=== PATIENT | female | born 1950 | race Caucasian/White ===

== ENCOUNTER 2021-12-11 09:38 | Inpatient (IN) | payer MEDICARE, OTHER, SELFPAY ==
[2021-12-11] VITALS (15 sets, daily range): BP systolic 112–172; BP diastolic 68–83; PULSE 76–126; RESP 18–26; TEMP 36.6–36.9; O2SAT 91–98; BMI 30.2
--- NOTE | 2021-12-11 10:17 | XR_ITS ---
WS: [id number] Exam: XR chest 1V portable [id number] Date/Time of Exam: 12/11/2021 10:20 AM Reason For Exam: dyspnea Comparison 12/10/2021. Findings: The lungs are clear and fully expanded. Costophrenic angles are sharp. No infiltrates. Bronchovascula r relief appears normal. Cardiac silhouette is unremarkable. Bony elements are intact. XR/XR chest 1V portable [id number] IMPRESSION: Unremarkable chest radiograph.
--- NOTE | 2021-12-11 10:17 | ECG_ITS ---
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 Measurements Intervals [place] Rate: 108 P: 79 MT: 136 QRS: 78 QRSD: 98 T: 56 QT: 301 QTc: 405 Interpretive Statements SINUS TACHYCARDIA MODERATE ST DEPRESSION [0.05+ mV ST DEPRESSION] Compared to ECG 12/10/2021 15:58:08 ST (T wave) deviation now present Sinus rhythm no longer present Electronically Signed On 12-11-2021 18:54:06 CDT by Sharee Schmitt M.D. [id number]
--- NOTE | 2021-12-11 10:18 | ED_ITS ---
HPI - SOB/Dyspnea General: Chief Complaint: Shortness of Breath/Dyspnea Stated Complaint: SOB/ WHEEZING Time Seen by Provider: 12/11/21 09:55 History of Present Illness: HPI Narrative: This is a 71-year-old female with chronic hypoxic respiratory failure related to COPD who presents to the emergency department after failure of outpatient treatment. The patient was seen yesterday for exacerbation of COPD and preferred to try and go home. However despite getting multiple breathing treatments and steroids yesterday she woke up this morning and was hardly able to get to the bathroom. Just combing her hair exhausted her and she could not catch her breath. Her daughter had to come over and turn her oxygen up to 5 L. The patient had already tried using her albuterol metered-dose inhaler several times and then did a albuterol nebulizer. When EMS came she was still wheezing and another nebulizer was done in route as well as 125 mg of Solu-Medrol. The patient states that nothing has changed from yesterday however she has not improving as she thought she would. Her daughter encouraged her to reach out for admission given the severity of her exacerbation. Review of Systems Narrative: Pertinent Positives: Dyspnea, wheezing, generalized weakness Pertinent Negatives: No fever, hemoptysis, syncope, chest pain, vomiting 12 Point ROS performed and otherwise negative unless stated here or HPI. [facility] ED PFSH: Medical History COPD exacerbation Surgical History (Updated 12/11/21 @ 11:06 by Heriberto Curran MD) History of elbow surgery History of hand surgery History of hysterectomy Family History (Updated 12/11/21 @ 11:06 by Heriberto Curran MD) Other Cancer Social History Smoking and tobacco status: former smoker Alcohol intake: never Physical Exam Narrative: EXAM NARRATIVE: I have reviewed the triage vital signs. Const: Well-nourished, Well-developed, appearing stated age, moderate respiratory distress Eyes: EOMI, no conjunctival injection, and symmetrical lids. ENMT: Atraumatic head and facial exam, external nose and ears normal Neck: Symmetric, trachea midline, no swelling, no JVD, ROM wnl CVS: Tachycardic rate, radial pulse 2+, no peripheral edema RESP: Diminished, inspiratory and expiratory wheezes, labored respirations, conversational dyspnea GI: Nontender/Nondistended, soft, no masses. MSK: Normocephalic/Atraumatic, extremities w/o deformity, no cyanosis or clubbing, no edema Skin: Warm, Dry, No rashes or lesions noted. Neuro: Sensation grossly intact, VELEZ, no focal neurologic deficits Psych: awake, alert, oriented, appropriate mood and affect Course Vital Signs: Vital signs: Vital Signs Temperature 98.2 F 12/11/21 09:51 Pulse Rate 126 H 12/11/21 10:49 Respiratory Rate 22 H 12/11/21 10:30 Blood Pressure 112/74 12/11/21 09:57 Pulse Oximetry 96 12/11/21 10:30 MDM - SOB/Dyspnea Medical Decision Making Patient presents with what appears to be a COPD exacerbation. She has had 2 doses of Solu-Medrol at 125 mg each, multiple treatments of albuterol and ipratropium. She continues to have severe symptoms. She is maintaining her oxygen at 97% now on 3 L. When she first came she was on 6 L/min. Her heart rate was elevated in the 120s on arrival but she had just finished doing albuterol at home and in the ambulance. It appears to be a sinus rhythm but an EKG will be ordered. I reviewed her labs from yesterday and she is found to have positive entero/rhinovirus which explains her exacerbation. Her COVID and influenza were negative. The patient's chest x-ray did not show any infiltrates. Her BNP and troponin were unremarkable. Plan to admit the patient today but will repeat a chest x-ray and obtain an ABG. ABG showed mild acute respiratory acidosis. Discussed with Dr Curran for admission. Lab Data : 12/11/21 09:45 12/11/21 09:45 Labs/Radiology: Radiology Impressions Chest X-Ray 12/11/21 10:17 IMPRESSION: Unremarkable chest radiograph. Laboratory Results WBC 13.5 10^3/uL (4.0-10.0) H 12/11/21 09:45 RBC 4.38 10^6/uL (4.1-5.3) 12/11/21 09:45 Hgb 12.8 g/dL (11.5-15.3) 12/11/21 09:45 Hct 39.0 % (37.0-47.0) 12/11/21 09:45 MCV 89.0 fl (81-99) 12/11/21 09:45 MCH 29.2 pg (28.0-34.0) 12/11/21 09:45 MCHC 32.8 g/dL (30.0-36.0) 12/11/21 09:45 RDW 11.8 % (12.1-15.1) L 12/11/21 09:45 Plt Count 333 10^3/cmm (130-400) 12/11/21 09:45 MPV 11.0 fL (7.4-10.4) H 12/11/21 09:45 Neut % (Auto) 85.2 % 12/11/21 09:45 Lymph % (Auto) 9.5 % 12/11/21 09:45 [place] % (Auto) 4.7 % 12/11/21 09:45 Eos % (Auto) 0.0 % 12/11/21 09:45 Baso % (Auto) 0.1 % 12/11/21 09:45 Neut # (Auto) 11.55 10^3/uL (1.8-7.7) H 12/11/21 09:45 Lymph # (Auto) 1.3 10^3/uL (0.8-4.8) 12/11/21 09:45 [place] # (Auto) 0.6 10^3/uL (0.2-0.9) 12/11/21 09:45 Eos # (Auto) 0.0 10^3/uL (0.0-0.8) 12/11/21 09:45 Baso # (Auto) 0.0 10^3/uL (0.0-0.1) 12/11/21 09:45 Nucleated RBC % (auto) 0 % 12/11/21 09:45 Nucleated RBCs # 0.0 /100WBC 12/11/21 09:45 Specimen Type Arterial 12/11/21 10:28 Sample Site Brachial, left 12/11/21 10:28 ABG pH 7.34 (7.35-7.45) L 12/11/21 10:28 ABG pCO2 51.9 mmHg (35-45) H 12/11/21 10:28 ABG pO2 90.2 mmHg (80.0-100.0) 12/11/21 10:28 ABG HCO3 27.7 mmol/L (22-26) H 12/11/21 10:28 ABG Base Excess 1.0 mmol/L (-2.0-2.0) 12/11/21 10:28 Gonzalez Test N/a 12/11/21 10:28 Hematocrit 39.4 % (37-47) 12/11/21 10:28 Hgb O2 Saturation 95.6 % (95-100) 12/11/21 10:28 Carboxyhemoglobin 0.3 %THgb (0.4-20.1) L 12/11/21 10:28 Methemoglobin 1.2 % (0.4-1.5) 12/11/21 10:28 Total Hemoglobin 12.8 g/dL (12-16) 12/11/21 10:28 O2 Delivery Device Nc 12/11/21 10:28 O2 Liters/Min 3.5 % 12/11/21 10:28 Answering Service Telephone Operator ID [id number] 12/11/21 10:28 Sodium 139 mmol/L (136-145) 12/11/21 09:45 Potassium 3.9 mmol/L (3.5-5.1) 12/11/21 09:45 Chloride 99 mmol/L (98-107) 12/11/21 09:45 Carbon Dioxide 27 mmol/L (22-29) 12/11/21 09:45 Anion Gap 16.9 (5-19) 12/11/21 09:45 BUN 13 mg/dL (8-23) 12/11/21 09:45 Creatinine 0.5 mg/dL (0.5-0.9) 12/11/21 09:45 GFR Calculation Not Reportable 12/11/21 09:45 Glucose 248 mg/dL (65-115) H 12/11/21 09:45 Calculated Osmolality 296 mOsm/kg (285-295) H 12/11/21 09:45 Calcium 9.5 mg/dL (8.5-10.5) 12/11/21 09:45 Total Bilirubin 0.2 mg/dL (0.15-1.2) 12/11/21 09:45 AST 18 U/L (0-32) 12/11/21 09:45 ALT 22 U/L (0-33) 12/11/21 09:45 Alkaline Phosphatase 87 IU/L (35-105) 12/11/21 09:45 Total Protein 7.6 g/dL (6.6-8.7) 12/11/21 09:45 Albumin 4.4 g/dL (3.5-5.2) 12/11/21 09:45 Globulin 3.2 g/dL (1.3-4.6) 12/11/21 09:45 Discharge Plan Discharge Patient Disposition: Admitted As Inpatient Clinical Impression: Acute exacerbation of chronic obstructive pulmonary disease, Rhinovirus Condition: Stable Coding Level of Care Code ED Paper Mill Manager for Danny Casillas
[2021-12-11] MEDS: magnesium sulfate premix 2 GM/50 ML PIGGYBACK IV (10:28)
[2021-12-11] MEDS: ipratropium-albuterol 3 mL Neb INHALATION ×4 (10:33→23:03)
[2021-12-11 10:45] LABS: ABG PCO2 51.9 mmHg (35-45); ABG PH Result 7.34 (7.35-7.45); Arterial Blood Gas Hematocrit 39.4 % (37-47); Blood Gas LPM 3.5 %; Blood Gas Operator Identificat GD; Blood Gas Sample Site Brachial, left; Blood Gas Sample Type Arterial; Carboxyhemoglobin 0.3 %THgb (0.4-20.1); HCO3 ABG 27.7 mmol/L (22-26); HGB O2 Sat 95.6 % (95-100); Methemoglobin 1.2 % (0.4-1.5); Oxygen Device NC; PO2 ABG 90.2 mmHg (80.0-100.0); Total Hemoglobin 12.8 g/dL (12-16)
[2021-12-11 10:46] LABS: Basophils % 0.1 %; Hemoglobin 12.8 g/dL (11.5-15.3); Lymphocytes # 1.3 10^3/uL (0.8-4.8); Lymphocytes % 9.5 %; Mean Corpuscular HGB Conc 32.8 g/dL (30.0-36.0); Mean Corpuscular Hemoglobin 29.2 pg (28.0-34.0); Monocytes # 0.6 10^3/uL (0.2-0.9); Monocytes % 4.7 %; Neutrophils # 11.55 10^3/uL (1.8-7.7); Neutrophils % 85.2 %; Nucleated Red Blood Cells % 0 %; Platelet Count 333 10^3/cmm (130-400); Red Blood Count 4.38 10^6/uL (4.1-5.3); Red Cell Distribution Width 11.8 % (12.1-15.1); White Blood Count 13.5 10^3/uL (4.0-10.0)
[2021-12-11 10:56] LABS: Alanine Aminotransferase 22 U/L (0-33); Albumin Level 4.4 g/dL (3.5-5.2); Alkaline Phosphatase 87 IU/L (35-105); Anion Gap 16.9 (5-19); Aspartate Amino Transferase 18 U/L (0-32); Blood Urea Nitrogen 13 mg/dL (8-23); Calcium 9.5 mg/dL (8.5-10.5); Carbon Dioxide 27 mmol/L (22-29); Chloride 99 mmol/L (98-107); Globulin 3.2 g/dL (1.3-4.6); Glucose 248 mg/dL (65-115); Osmolality Calculated 296 mOsm/kg (285-295); Potassium 3.9 mmol/L (3.5-5.1); Sodium 139 mmol/L (136-145); Total Bilirubin 0.2 mg/dL (0.15-1.2); Total Protein 7.6 g/dL (6.6-8.7)
--- NOTE | 2021-12-11 11:02 | PM.HP ---
Providers/Chief Complaint Admitting Physician: Heriberto Curran MD Primary Care Provider: Donald Joiner Chief Complaint: SOB/ WHEEZING History of Present Illness Shirley Avila is a 71 year old female who presents with increased wheezing for the last 3 days. She typically has some wheezing with exertion, and is maintained on 3-1/2 L of oxygen. This morning her oxygen saturation was lower, and daughter increased it to 5 L. She has had some chills but no fever. She occasionally has productivity to her cough but no blood. She reports a little bit of chest tightness when she was wheezing significantly. She was seen in the ER yesterday, prescribed some prednisone but she has not yet had it filled. She continues to smoke but has not in the last 1-1/2 days. Denies any vomiting. Reports she does not want a nicotine patch currently. She did not have her blood pressure medicine yet this morning. In the emergency department she received breathing treatment, and some magnesium. Review of Systems General: Reports: 10 or more systems reviewed and unremarkable except in HPI and below Const: Reports: chills; Denies: fever(s) Eyes: Denies: change in vision ENMT: Denies: throat pain Card: Reports: chest pain Resp: Reports: dyspnea, productive cough and wheezing GI: Denies: abdominal pain, nausea, vomiting, hematochezia or melena : Denies: flank pain Musc: Denies: neck pain Skin/Breast: Denies: rash Neuro: Denies: headache(s) Psych: Denies: anxiety Endo: Denies: polyuria Maciej/Lymph: Denies: easy bruising All/Imm: Denies: urticaria Medications/Allergies Home Medications Medication Instructions Recorded Confirmed Last Taken Type albuterol sulfate 2.5 mg INHALATION Q4H PRN 12/10/21 12/11/21 12/10/21 History albuterol sulfate 90 mcg/actuation 2 puff INHALATION Q4H PRN 12/10/21 12/11/21 12/10/21 History aerosol inhaler (ProAir HFA) amlodipine 5 mg tablet 5 mg PO QAM 12/10/21 12/11/21 12/10/21 History aspirin 81 mg tablet,delayed 81 mg PO QAM 12/10/21 12/11/21 12/10/21 History release cetirizine 10 mg tablet 10 mg PO DAILY PRN 12/10/21 12/11/21 12/09/21 History ipratropium 20 mcg-albuterol 100 1 puff INHALATION Q6H 12/10/21 12/11/21 12/10/21 History mcg/actuation mist for inhalation (Combivent Respimat) metoprolol succinate 100 mg 100 mg PO DAILY 12/10/21 12/11/21 12/10/21 History tablet,extended release 24 hr prednisone 50 mg tablet 50 mg PO DAILY PRN 5 Days #5 tab 12/10/21 12/11/21 Unknown Rx Fish Oil 1 cap PO DAILY 12/11/21 12/11/21 Unknown History dextromethorphan-guaifenesin 10 10 ml PO Q4H PRN 12/11/21 12/11/21 12/09/21 History mg-100 mg/5 mL oral liquid [id number]-[id number]-HD-acetaminophen 7.5 30 ml PO Q6H PRN 12/11/21 12/11/21 Unknown History mg-60 [id number]/30mL oral liqd metformin 500 mg tablet 500 mg PO BID 12/11/21 12/11/21 12/10/21 History Allergies Allergy/AdvReac Type Severity Reaction Status Date / Time No Known Allergies Allergy Verified 12/11/21 10:30 PFSH Acute PFSH: Medical History (Updated 12/11/21 @ 11:09 by Heriberto Curran MD) COPD (chronic obstructive pulmonary disease) COPD exacerbation Diabetes mellitus type 2 in nonobese Hypertension Tobacco dependency Surgical History (Updated 12/11/21 @ 11:06 by Heriberto Curran MD) History of elbow surgery History of hand surgery History of hysterectomy Family History (Updated 12/11/21 @ 11:06 by Heriberto Curran MD) Other Cancer Social History (Updated 12/11/21 @ 11:06 by Heriberto Curran MD) Smoking and tobacco status: current every day smoker Alcohol intake: never Vitals/I&O/Wt Last Vital Signs Temp 98.2 F 12/11/21 09:51 Pulse 126 H 12/11/21 10:49 Resp 22 H 12/11/21 10:30 BP 112/74 12/11/21 09:57 Pulse Ox 96 12/11/21 10:30 Weight last 48 hrs Weight 72.575 kg Physical Exam Narrative: General exam is a white female, with mild to moderate respiratory distress with some retractions with audible wheezing HEENT: Pupils equally round. Oropharynx clear. Neck is supple no lymphadenopathy thyromegaly Cardiovascular tachycardic, regular, no murmur Lungs bilateral expiratory wheezes, occasional rhonchi Abdomen is soft nontender positive bowel sounds. No obvious organomegaly exams deferred Extremities no cyanosis clubbing or edema, cap refill brisk Skin no rash Neuro no obvious focal deficits. Data : 12/11/21 09:45 12/11/21 09:45 Other Labs: EKG demonstrates sinus rhythm, normal axis, no acute changes on December 10 Chest x-ray December 10 demonstrated no infiltrate, repeat today no change Laboratory ABG demonstrated pH 7.34, PCO2 of 52, PO2 of 98 on 3-1/2 L LFTs are normal Previous PCR detected darrius-/rhinovirus Troponin yesterday negative. Repeat today pending. A&P Assessment and plan (1) COPD exacerbation: Patient presents with significant COPD exacerbation, with increased work of breathing and ABG which is demonstrating some CO2 retention. At this point secondary to the severity of her illness, return to the emergency department, will make a full admit She will need nebulized treatments every 4 hours, budesonide twice daily Initiate IV Solu-Medrol 60 mg IV every 8 hours Avoid tobacco Secondary to concern of superimposed bacterial bronchitis we will add doxycycline 100 mg twice daily, first dose now.. This will be a short course. Status: Acute (2) Rhinovirus: PCR positive for rhinovirus, yesterday Status: Acute Plan Hypertension. Initiate her metoprolol today as she missed her morning dose Tobacco dependency. Counseled on abstinence. Offered nicotine patch which she refused. Type 2 diabetes. Sliding scale insulin Multiple other medical problems as outlined in past medical history Full code Lovenox for DVT prophylaxis Attestations Medical Necessity Statement*: Will need greater than 2 midnight stay secondary to relatively severe COPD exacerbation with increased work of breathing, trend towards acute respiratory acidosis and failure. Coding Level of Care Code Acute Neuropsychology Medical Consultant for g Fwd Diagnoses COPD exacerbation J44.1 Rhinovirus B34.8
[2021-12-11 11:17] LABS: Troponin(5th) Baseline 10 ng/L (0-10)
[2021-12-11] MEDS: doxycycline 100 mg Tablet PO ×2 (11:20→21:08)
[2021-12-11] MEDS: metoprolol succinate ER (24 HR) 100 mg Tablet PO (11:21)
--- NOTE | 2021-12-11 12:16 | PC.NURSE ---
Updated pt/family on bed status. Waiting for a room to become available.
[2021-12-11 12:39] LABS: Troponin T (5th) Once 21 ng/L (0-10)
[2021-12-11 12:39] LABS: Glucose Point of Care 270 mg/dL (70-110)
[2021-12-11] MEDS: enoxaparin 40 mg/0.4 mL Syringe SUBCUT (13:01)
[2021-12-11] MEDS: insulin lispro 100 unit/1 mL SUBCUT ×3 (13:02→22:01)
[2021-12-11] MEDS: guaiFENesin-dextromethorphan UDC 10 mL PO ×2 (14:44→21:09)
[2021-12-11 17:45] LABS: Glucose Point of Care 177 mg/dL (70-110)
[2021-12-11] MEDS: budesonide 0.5 mg/2 mL Neb INHALATION (19:48)
[2021-12-11 22:01] LABS: Glucose Point of Care 188 mg/dL (70-110)
[2021-12-12] VITALS (14 sets, daily range): BP systolic 107–160; BP diastolic 42–78; PULSE 74–95; RESP 15–22; TEMP 36.4–36.8; O2SAT 3–98
[2021-12-12] MEDS: guaiFENesin-dextromethorphan UDC 10 mL PO ×2 (04:51→20:26)
[2021-12-12] MEDS: ipratropium-albuterol 3 mL Neb INHALATION ×5 (05:07→20:14)
[2021-12-12 05:21] LABS: Basophils % 0.1 %; Hematocrit 40.3 % (37.0-47.0); Hemoglobin 12.7 g/dL (11.5-15.3); Lymphocytes # 1.1 10^3/uL (0.8-4.8); Lymphocytes % 5.3 %; Mean Corpuscular HGB Conc 31.5 g/dL (30.0-36.0); Mean Corpuscular Hemoglobin 29.1 pg (28.0-34.0); Mean Corpuscular Volume 92.4 fl (81-99); Mean Platelet Volume 9.8 fL (7.4-10.4); Monocytes # 0.4 10^3/uL (0.2-0.9); Neutrophils # 19.24 10^3/uL (1.8-7.7); Neutrophils % 92.1 %; Nucleated Red Blood Cells % 0 %; Platelet Count 443 10^3/cmm (130-400); Red Blood Count 4.36 10^6/uL (4.1-5.3); Red Cell Distribution Width 11.9 % (12.1-15.1); White Blood Count 20.9 10^3/uL (4.0-10.0)
[2021-12-12] MEDS: aspirin 81 mg EC Tablet PO (05:23)
[2021-12-12] MEDS: amlodipine 5 mg Tablet PO (05:23)
[2021-12-12 05:40] LABS: Anion Gap 14.8 (5-19); Blood Urea Nitrogen 17 mg/dL (8-23); Calcium 9.8 mg/dL (8.5-10.5); Carbon Dioxide 30 mmol/L (22-29); Chloride 98 mmol/L (98-107); Glucose 208 mg/dL (65-115); Magnesium 2.3 mg/dL (1.7-2.3); Osmolality Calculated 294 mOsm/kg (285-295); Potassium 4.8 mmol/L (3.5-5.1); Sodium 138 mmol/L (136-145)
[2021-12-12 06:33] LABS: Glucose Point of Care 193 mg/dL (70-110)
--- NOTE | 2021-12-12 07:21 | PC.NURSE ---
received bedside report. no needs identified by patient at this time. reviewed poc and assumed care of patient
[2021-12-12] MEDS: budesonide 0.5 mg/2 mL Neb INHALATION ×2 (07:52→20:14)
[2021-12-12] MEDS: doxycycline 100 mg Tablet PO ×2 (08:54→22:09)
[2021-12-12] MEDS: metoprolol succinate ER (24 HR) 100 mg Tablet PO (08:54)
[2021-12-12] MEDS: loratadine 10 mg Tablet PO (08:55)
[2021-12-12] MEDS: insulin lispro 100 unit/1 mL SUBCUT ×4 (08:56→22:09)
--- NOTE | 2021-12-12 09:12 | PM.PN ---
Subjective Subjective: Shirley reports she feels a little bit better. She notes that her oxygen level still goes down significantly when she gets up to do anything. No vomiting. She would like consideration for pulmonary rehab referral, pulmonary referral on discharge. Medications: Reviewed: Yes Vitals/I&O/Wt Last Vital Signs Temp 97.7 F 12/12/21 07:18 Pulse 83 12/12/21 08:00 Resp 16 12/12/21 08:00 BP 160/42 12/12/21 07:18 Pulse Ox 91 12/12/21 08:00 12/11/21 12/12/21 12/12/21 22:59 06:59 14:59 Intake Total 410 / 460 100 / 560 Output Total 800 / 800 Balance 410 / 460 100 / 560 -800 / -800 Weight last 48 hrs Weight 72.575 kg Physical Exam Narrative: General exam is a white female, no distress Neck is supple no lymphadenopathy thyromegaly Cardiovascular tachycardic, regular, no murmur Lungs bilateral expiratory wheezes, rhonchi Abdomen is soft nontender positive bowel sounds. No obvious organomegaly Extremities no cyanosis clubbing or edema, cap refill brisk Skin no rash Data : 12/12/21 05:06 12/12/21 05:06 A&P Assessment and plan (1) COPD exacerbation: Patient presents with significant COPD exacerbation, with increased work of breathing and ABG which is demonstrating some CO2 retention. She is improving, but needs continued hospitalization. Continue nebulized treatments every 4 hours, budesonide twice daily Reduce Solu-Medrol to every 12 hours Avoid tobacco Secondary to concern of superimposed bacterial bronchitis continue doxycycline. This will be a short course. COVID PCR was negative. She did test positive for rhinovirus/enterovirus Status: Acute (2) Rhinovirus: PCR positive for rhinovirus, yesterday Status: Acute Plan Elevated white blood cell count. Secondary to steroids. Hypertension. Continue metoprolol, Norvasc Tobacco dependency. Counseled on abstinence. Offered nicotine patch which she refused. Type 2 diabetes. Sliding scale insulin Multiple other medical problems as outlined in past medical history Full code Lovenox for DVT prophylaxis No need for laboratory tomorrow. Attestations Medical Necessity Statement*: Needs continued hospitalization for pulmonary toilet, IV steroids secondary to severe COPD exacerbation. Coding Level of Care Code Acute Section Hand for [facility] Fwd Diagnoses COPD exacerbation J44.1 Rhinovirus B34.8
[2021-12-12] MEDS: ALPRAZolam 0.5 mg Tablet PO ×2 (09:27→15:07)
--- NOTE | 2021-12-12 10:22 | PC.CHAP ---
Pastoral Care Encounter/Spiritual Assessment Type of Contact [] Declined fitness professional visit [] Patient/Family/Request visit [] Outpatient visit [] Follow-up visit [] Physician referral [] Code/Alert [x] Routine visit [] Staff referral [] Actively dying [] Patient sleeping [] Family support [] [] Out of room [] Palliative care [] [] Receiving care in room [] Pre-surgical visit [] Trauma [] Long length of stay [] ICU visit [] Other: Relational/Emotional Strength [x] Patient feels connected with others/family/visitors/staff [] Distress [] Loneliness/isolation [] Abandonment Spirituality of Patient [x] Person of Rosangela [x] Attends Pentecostalism of their [place] [x] Believes in Prayer [] Reads Bible or Taoism materials [] There are Spiritual issues to be addressed Lean Facilitator Interventions [x] Prayer [x] Active listening [x] Non-anxious presence [x] Spiritual/emotional support [] Crisis/trauma care [] Spiritual counseling [] Bereavement support [] Provided bereavement packet [] Provided Bible/devotional materials [] Provided toy/stuffed animal, coloring book to patient or family member [] Provided Communion [] Anointing/[place] [] Salvation [x] Completed spiritual assessment [] Other: Impact on Illness or Injury [] Angry [] Fearful [] Anxious [] Often cries [] Exhaustion [] Unable to work [] Unable to attend yazdanism [] Unable to walk/stand [] Unable to read [] Unable to drive [] Unable to eat/drink [] Unable to sleep [] Unable to be with family [] Patient intubated [] Other: Summary Time spent with patient 15 min
[2021-12-12 11:26] LABS: Glucose Point of Care 241 mg/dL (70-110)
[2021-12-12] MEDS: enoxaparin 40 mg/0.4 mL Syringe SUBCUT (15:06)
[2021-12-12 17:18] LABS: Glucose Point of Care 168 mg/dL (70-110)
[2021-12-12 20:44] LABS: Glucose Point of Care 214 mg/dL (70-110)
[2021-12-13] VITALS (14 sets, daily range): BP systolic 113–156; BP diastolic 63–90; PULSE 67–93; RESP 16–32; TEMP 36.4–36.7; O2SAT 67–98
[2021-12-13] MEDS: ipratropium-albuterol 3 mL Neb INHALATION ×5 (04:27→20:09)
[2021-12-13] MEDS: aspirin 81 mg EC Tablet PO (05:43)
[2021-12-13] MEDS: amlodipine 5 mg Tablet PO (05:43)
[2021-12-13 06:36] LABS: Glucose Point of Care 160 mg/dL (70-110)
--- NOTE | 2021-12-13 07:10 | PC.NURSE ---
received bedside report from night shift manager. pt resting comfortably. no needs identified at this time. reviewed poc and assumed care of patient
[2021-12-13] MEDS: budesonide 0.5 mg/2 mL Neb INHALATION ×2 (08:24→20:09)
[2021-12-13] MEDS: benzonatate 100 mg Capsule 200 MG PO ×3 (09:03→20:43)
[2021-12-13] MEDS: ALPRAZolam 0.5 mg Tablet PO ×2 (09:03→16:14)
[2021-12-13] MEDS: doxycycline 100 mg Tablet PO ×2 (09:03→20:43)
[2021-12-13] MEDS: metoprolol succinate ER (24 HR) 100 mg Tablet PO (09:03)
[2021-12-13] MEDS: loratadine 10 mg Tablet PO (09:03)
[2021-12-13] MEDS: guaiFENesin-dextromethorphan UDC 10 mL PO ×2 (09:04→14:12)
[2021-12-13] MEDS: insulin lispro 100 unit/1 mL SUBCUT ×4 (09:04→20:57)
--- NOTE | 2021-12-13 12:41 | PM.PN ---
Subjective Subjective: This morning protracted/severe episode of cough, with dyspnea and resultant hypoxia, saturation transiting to 60s, improved after breathing treatment, escalation of nasal cannula oxygen up to 6. Seeing her after the episode she is feeling better after the breathing treatment. Cough is nonproductive. Discussed with her escalation of IV steroid, scheduling antitussive and continued as needed. Continued other current care in the hospital. She and her are agreeable. She otherwise denies headache, no chest pain, nausea vomiting or diarrhea. Vitals/I&O/Wt Last Vital Signs Temp 97.5 F L 12/13/21 11:28 Pulse 79 12/13/21 11:29 Resp 18 12/13/21 11:28 BP 113/65 12/13/21 11:28 Pulse Ox 98 12/13/21 11:28 12/12/21 12/13/21 12/13/21 22:59 06:59 14:59 Intake Total 100 / 100 Balance 100 / -700 Physical Exam Const: COMMON NORMALS: alert GENERAL APPEARANCE: cooperative ORIENTATION/CONSCIOUSNESS: Yes awake HENMT: COMMON NORMALS: normocephalic, EAC's normal, Normal external nose present and moist oral mucous membranes HEAD & SCALP: normocephalic NOSE: Normal external nose present EXTERNAL AUDITORY CANAL: EAC's normal Neck/C-Spine: COMMON NORMALS: no meningeal signs Chest: CHEST: Yes Symmetrical chest wall rise Resp: AUSCULTATION: wheezes and diminished lung sounds Cardio: COMMON NORMALS: regular rate, regular rhythm and No murmurs present (Cardio) RATE: regular rate RHYTHM: regular rhythm GI: COMMON NORMALS: Normal to inspection, nondistended, normoactive bowel sounds present, Soft to palpation and non-tender PALPATION: Yes Soft to palpation Extremity: COMMON NORMALS: no pedal edema Neuro: COMMON NORMALS: moves all extremities SENSORIUM/ORIENTATION: Yes alert MENINGEAL SIGNS: Yes no meningeal signs Psych: COMMON NORMALS: mental status grossly normal Skin: COMMON NORMALS: no wounds RASHES: no rashes Data : 12/12/21 05:06 12/12/21 05:06 A&P Assessment and plan (1) COPD exacerbation: Worsened condition. Transient desaturation down into the 60s after severe bout of cough. Improved with breathing treatments. Currently sats in the 90s with oxygen escalated to 6 L by nasal cannula. Increase IV steroid dose to every 6 hours. Schedule antitussive, continue as needed antitussive. Continue breathing treatments, including inhaled steroid as she sounds tight, wheezy. Continue empiric antibiotic. Discussed with her nurse to add oxygen humidification. Acute hypoxic respiratory failure with increasing oxygen requirement. Severe exacerbation of COPD with rhinovirus/enterovirus. Secondary to concern of superimposed bacterial bronchitis continue doxycycline. COVID PCR was negative. Status: Acute (2) Rhinovirus: PCR positive for rhinovirus Status: Acute Plan Elevated white blood cell count. Secondary to steroids. Hypertension. Continue metoprolol, Norvasc Tobacco dependency. Was offered nicotine patch which she refused. Type 2 diabetes. Sliding scale insulin Multiple other medical problems as outlined in past medical history Full code Lovenox for DVT prophylaxis Attestations Medical Necessity Statement*: Continue admission for management of acute hypoxic respiratory failure, severe exacerbation of COPD. Coding Level of Care Code Acute Independent Sales Representative for Danny Casillas Diagnoses COPD exacerbation J44.1 Rhinovirus B34.8
[2021-12-13 13:09] LABS: Glucose Point of Care 270 mg/dL (70-110)
[2021-12-13] MEDS: enoxaparin 40 mg/0.4 mL Syringe SUBCUT (14:07)
[2021-12-13] MEDS: azithromycin 500 MG in sodium chloride 0.9% 250 ML 250 MG IV (16:21)
[2021-12-13 17:22] LABS: Glucose Point of Care 263 mg/dL (70-110)
[2021-12-13 20:59] LABS: Glucose Point of Care 257 mg/dL (70-110)
[2021-12-14] VITALS (17 sets, daily range): BP systolic 133–163; BP diastolic 65–73; PULSE 71–90; RESP 17–20; TEMP 36.4–36.6; O2SAT 90–98
[2021-12-14] MEDS: ipratropium-albuterol 3 mL Neb INHALATION ×6 (00:02→19:51)
[2021-12-14 04:35] LABS: Basophils % 0.1 %; Hematocrit 39.3 % (37.0-47.0); Hemoglobin 11.8 g/dL (11.5-15.3); Lymphocytes # 0.8 10^3/uL (0.8-4.8); Lymphocytes % 5.4 %; Mean Corpuscular Hemoglobin 28.5 pg (28.0-34.0); Mean Corpuscular Volume 94.9 fl (81-99); Monocytes # 0.3 10^3/uL (0.2-0.9); Monocytes % 1.8 %; Neutrophils # 14.03 10^3/uL (1.8-7.7); Neutrophils % 91.7 %; Nucleated Red Blood Cells % 0 %; Platelet Count 407 10^3/cmm (130-400); Red Blood Count 4.14 10^6/uL (4.1-5.3); Red Cell Distribution Width 11.8 % (12.1-15.1); White Blood Count 15.3 10^3/uL (4.0-10.0)
[2021-12-14 05:03] LABS: Alanine Aminotransferase 20 U/L (0-33); Albumin Level 3.7 g/dL (3.5-5.2); Alkaline Phosphatase 75 IU/L (35-105); Anion Gap 9.6 (5-19); Aspartate Amino Transferase 12 U/L (0-32); Blood Urea Nitrogen 23 mg/dL (8-23); Calcium 9.2 mg/dL (8.5-10.5); Carbon Dioxide 35 mmol/L (22-29); Chloride 101 mmol/L (98-107); Globulin 2.9 g/dL (1.3-4.6); Glucose 177 mg/dL (65-115); Osmolality Calculated 300 mOsm/kg (285-295); Potassium 4.6 mmol/L (3.5-5.1); Sodium 141 mmol/L (136-145); Total Bilirubin 0.2 mg/dL (0.15-1.2); Total Protein 6.6 g/dL (6.6-8.7)
[2021-12-14] MEDS: amlodipine 5 mg Tablet PO (05:59)
[2021-12-14] MEDS: aspirin 81 mg EC Tablet PO (05:59)
[2021-12-14 06:28] LABS: Glucose Point of Care 191 mg/dL (70-110)
[2021-12-14] MEDS: insulin lispro 100 unit/1 mL SUBCUT ×4 (08:27→20:51)
[2021-12-14] MEDS: benzonatate 100 mg Capsule 200 MG PO ×3 (08:28→20:50)
[2021-12-14] MEDS: doxycycline 100 mg Tablet PO ×2 (08:28→20:50)
[2021-12-14] MEDS: metoprolol succinate ER (24 HR) 100 mg Tablet PO (08:28)
[2021-12-14] MEDS: loratadine 10 mg Tablet PO (08:28)
[2021-12-14] MEDS: budesonide 0.5 mg/2 mL Neb INHALATION ×2 (08:56→19:51)
--- NOTE | 2021-12-14 11:26 | PC.SOCIAL ---
IMM UPDATED IMM dated and initialed and copy placed in chart and given to patient
[2021-12-14 11:45] LABS: Glucose Point of Care 227 mg/dL (70-110)
--- NOTE | 2021-12-14 12:22 | P.PN_ITS ---
Subjective Subjective: She is feeling slightly better today. Less cough, although is still having intermittent cough. Her feels her color is better. No nausea vomiting or diarrhea. Vitals/I&O/Wt Last Vital Signs Temp 97.7 F 12/14/21 11:31 Pulse 88 12/14/21 11:31 Resp 20 H 12/14/21 11:31 BP 162/65 12/14/21 11:31 Pulse Ox 90 12/14/21 11:31 12/13/21 12/14/21 12/14/21 22:59 06:59 14:59 Intake Total 350 / 350 Balance 350 / 350 Physical Exam Const: COMMON NORMALS: alert GENERAL APPEARANCE: cooperative ORIENTATION/CONSCIOUSNESS: Yes awake HENMT: COMMON NORMALS: normocephalic, EAC's normal, Normal external nose present and moist oral mucous membranes HEAD & SCALP: normocephalic NOSE: Normal external nose present EXTERNAL AUDITORY CANAL: EAC's normal Neck/C-Spine: COMMON NORMALS: no meningeal signs Chest: CHEST: Yes Symmetrical chest wall rise Resp: AUSCULTATION: wheezes (minimal) and diminished lung sounds Cardio: COMMON NORMALS: regular rate, regular rhythm and No murmurs present (Cardio) RATE: regular rate RHYTHM: regular rhythm GI: COMMON NORMALS: Normal to inspection, nondistended, normoactive bowel sounds present, Soft to palpation and non-tender PALPATION: Yes Soft to palpation Extremity: COMMON NORMALS: no pedal edema Neuro: COMMON NORMALS: moves all extremities SENSORIUM/ORIENTATION: Yes alert MENINGEAL SIGNS: Yes no meningeal signs Psych: COMMON NORMALS: mental status grossly normal Skin: COMMON NORMALS: no wounds RASHES: no rashes Data : 12/14/21 02:56 12/14/21 02:56 A&P Assessment and plan (1) COPD exacerbation: Today she is doing slightly better. Still diminished air entry, but only minimal wheeze today. Still coughing, although less. Oxygen requirement is slightly better, although still needing 3.5 L by nasal cannula. For now given diminished air entry continue IV steroids unchanged. We will also continue scheduled and as needed antitussives. Azithromycin added empirically and for some anti-inflammatory effect. Continue breathing treatments, including inhaled steroid as she sounds tight, wheezy. Now improving acute hypoxic respiratory failure with increasing oxygen requirement. Severe exacerbation of COPD with rhinovirus/enterovirus. Secondary to concern of superimposed bacterial bronchitis continue doxycycline. COVID PCR was negative. Status: Acute (2) Rhinovirus: PCR positive for rhinovirus Status: Acute Plan Elevated white blood cell count. Secondary to steroids. Hypertension. Continue metoprolol, Norvasc Tobacco dependency. Was offered nicotine patch which she refused. Type 2 diabetes. Sliding scale insulin Multiple other medical problems as outlined in past medical history Full code Lovenox for DVT prophylaxis Attestations Medical Necessity Statement*: Continue admission for assessment management of severe exacerbation of COPD with rhino enterovirus infection. Coding Level of Care Code Acute Production Administrator for [facility] Fwd Diagnoses COPD exacerbation J44.1 Rhinovirus B34.8
[2021-12-14] MEDS: enoxaparin 40 mg/0.4 mL Syringe SUBCUT (15:14)
[2021-12-14] MEDS: azithromycin 500 MG in sodium chloride 0.9% 250 ML 250 MG IV (15:14)
[2021-12-14 17:10] LABS: Glucose Point of Care 172 mg/dL (70-110)
[2021-12-14] MEDS: polyethylene glycol 3350 Pkt 17 gm PO (18:11)
[2021-12-14] MEDS: acetaminophen 325 mg Tablet 650 MG PO (20:53)
[2021-12-14 21:07] LABS: Glucose Point of Care 258 mg/dL (70-110)
[2021-12-15] VITALS (17 sets, daily range): BP systolic 129–153; BP diastolic 64–78; PULSE 65–92; RESP 13–22; TEMP 36.3–36.6; O2SAT 90–99
[2021-12-15] MEDS: ipratropium-albuterol 3 mL Neb INHALATION ×6 (00:14→23:27)
[2021-12-15 04:20] LABS: Basophils % 0.1 %; Hematocrit 38.2 % (37.0-47.0); Hemoglobin 11.5 g/dL (11.5-15.3); Lymphocytes # 0.9 10^3/uL (0.8-4.8); Lymphocytes % 6.8 %; Mean Corpuscular HGB Conc 30.1 g/dL (30.0-36.0); Mean Corpuscular Hemoglobin 28.3 pg (28.0-34.0); Mean Corpuscular Volume 94.1 fl (81-99); Monocytes # 0.3 10^3/uL (0.2-0.9); Neutrophils # 11.33 10^3/uL (1.8-7.7); Neutrophils % 90.1 %; Nucleated Red Blood Cells % 0 %; Platelet Count 390 10^3/cmm (130-400); Red Blood Count 4.06 10^6/uL (4.1-5.3); Red Cell Distribution Width 11.7 % (12.1-15.1); White Blood Count 12.6 10^3/uL (4.0-10.0)
[2021-12-15 04:40] LABS: Alanine Aminotransferase 20 U/L (0-33); Albumin Level 3.6 g/dL (3.5-5.2); Alkaline Phosphatase 66 IU/L (35-105); Anion Gap 10.3 (5-19); Aspartate Amino Transferase 11 U/L (0-32); Blood Urea Nitrogen 25 mg/dL (8-23); Calcium 8.9 mg/dL (8.5-10.5); Carbon Dioxide 38 mmol/L (22-29); Chloride 99 mmol/L (98-107); Globulin 2.9 g/dL (1.3-4.6); Glucose 217 mg/dL (65-115); Osmolality Calculated 305 mOsm/kg (285-295); Potassium 5.3 mmol/L (3.5-5.1); Sodium 142 mmol/L (136-145); Total Bilirubin 0.2 mg/dL (0.15-1.2); Total Protein 6.5 g/dL (6.6-8.7)
[2021-12-15] MEDS: amlodipine 5 mg Tablet PO (05:50)
[2021-12-15] MEDS: aspirin 81 mg EC Tablet PO (05:50)
[2021-12-15 06:35] LABS: Glucose Point of Care 228 mg/dL (70-110)
[2021-12-15] MEDS: budesonide 0.5 mg/2 mL Neb INHALATION ×2 (08:06→20:35)
[2021-12-15] MEDS: insulin lispro 100 unit/1 mL SUBCUT ×4 (08:19→20:21)
[2021-12-15] MEDS: benzonatate 100 mg Capsule 200 MG PO ×3 (08:20→20:23)
[2021-12-15] MEDS: polyethylene glycol 3350 Pkt 17 gm PO (08:20)
[2021-12-15] MEDS: loratadine 10 mg Tablet PO (08:20)
[2021-12-15] MEDS: metoprolol succinate ER (24 HR) 100 mg Tablet PO (08:20)
[2021-12-15] MEDS: doxycycline 100 mg Tablet PO ×2 (08:25→20:23)
--- NOTE | 2021-12-15 10:39 | PM.PN ---
Subjective Subjective: He is feeling slightly better still today. Got up to the commode, still got tired/dyspneic, but saturation actually maintained better than yesterday. Coughing slightly less. Had a small bowel movement. Vitals/I&O/Wt Last Vital Signs Temp 97.8 F 12/15/21 07:35 Pulse 76 12/15/21 08:14 Resp 18 12/15/21 08:00 BP 153/74 12/15/21 07:35 Pulse Ox 97 12/15/21 08:00 12/14/21 12/15/21 12/15/21 22:59 06:59 14:59 Intake Total 590 / 590 160 / 750 120 / 120 Output Total 800 / 800 150 / 950 Balance -210 / -210 10 / -200 120 / 120 Physical Exam Narrative: at bedside Const: COMMON NORMALS: alert GENERAL APPEARANCE: cooperative ORIENTATION/CONSCIOUSNESS: Yes awake HENMT: COMMON NORMALS: normocephalic, EAC's normal, Normal external nose present and moist oral mucous membranes HEAD & SCALP: normocephalic NOSE: Normal external nose present EXTERNAL AUDITORY CANAL: EAC's normal Neck/C-Spine: COMMON NORMALS: no meningeal signs Chest: CHEST: Yes Symmetrical chest wall rise Resp: AUSCULTATION: no wheezes and diminished lung sounds Cardio: COMMON NORMALS: regular rate, regular rhythm and No murmurs present (Cardio) RATE: regular rate RHYTHM: regular rhythm GI: COMMON NORMALS: Normal to inspection, nondistended, normoactive bowel sounds present, Soft to palpation and non-tender PALPATION: Yes Soft to palpation Extremity: COMMON NORMALS: no pedal edema Neuro: COMMON NORMALS: moves all extremities SENSORIUM/ORIENTATION: Yes alert MENINGEAL SIGNS: Yes no meningeal signs Psych: COMMON NORMALS: mental status grossly normal Skin: COMMON NORMALS: no wounds RASHES: no rashes Data : 12/15/21 04:05 12/15/21 04:05 A&P Assessment and plan (1) COPD exacerbation: Again slightly better. Still diminished air entry, but only no wheeze today. Still getting dyspneic/fatigue with exertion, but today saturation held steady when she was getting up to the commode. Still coughing, although less. Oxygen requirement is slightly better, although still needing 3.5 L by nasal cannula. Continue IV steroids unchanged. We will also continue scheduled and as needed antitussives. Azithromycin added empirically and for some anti-inflammatory effect. Continue breathing treatments, including inhaled steroid as she sounds tight, wheezy. PT assessment Now improving acute hypoxic respiratory failure with increasing oxygen requirement. Severe exacerbation of COPD with rhinovirus/enterovirus. Secondary to concern of superimposed bacterial bronchitis continue doxycycline. COVID PCR was negative. Status: Acute (2) Rhinovirus: PCR positive for rhinovirus Status: Acute (3) Hyperkalemia: Mild, K 5.3. Change diet to low potassium. Recheck tonight. Status: Acute Plan Elevated white blood cell count. Secondary to steroids. Hypertension. Continue metoprolol, Norvasc Tobacco dependency. Was offered nicotine patch which she refused. Type 2 diabetes. Sliding scale insulin. Anticipate glucose to improve once weaning down on steroids. Multiple other medical problems as outlined in past medical history Full code Lovenox for DVT prophylaxis Attestations Medical Necessity Statement*: Continue admission for cyst management of slowly improving hypoxic respite failure, severe COPD exacerbation. 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
[2021-12-15 11:12] LABS: Glucose Point of Care 207 mg/dL (70-110)
[2021-12-15] MEDS: enoxaparin 40 mg/0.4 mL Syringe SUBCUT (15:03)
[2021-12-15] MEDS: azithromycin 500 MG in sodium chloride 0.9% 250 ML 250 MG IV (15:15)
[2021-12-15 16:32] LABS: Potassium 4.6 mmol/L (3.5-5.1)
[2021-12-15 17:14] LABS: Glucose Point of Care 174 mg/dL (70-110)
[2021-12-15 20:21] LABS: Glucose Point of Care 206 mg/dL (70-110)
[2021-12-15] MEDS: acetaminophen 325 mg Tablet 650 MG PO (20:30)
[2021-12-16] VITALS (16 sets, daily range): BP systolic 147–180; BP diastolic 70–76; PULSE 71–88; RESP 16–20; TEMP 36–36.9; O2SAT 93–97
[2021-12-16 03:21] LABS: Basophils % 0.1 %; Hematocrit 37.7 % (37.0-47.0); Hemoglobin 11.8 g/dL (11.5-15.3); Lymphocytes # 1.7 10^3/uL (0.8-4.8); Lymphocytes % 11.5 %; Mean Corpuscular HGB Conc 31.3 g/dL (30.0-36.0); Mean Corpuscular Hemoglobin 28.9 pg (28.0-34.0); Mean Corpuscular Volume 92.4 fl (81-99); Mean Platelet Volume 9.7 fL (7.4-10.4); Monocytes % 6.8 %; Neutrophils # 12.06 10^3/uL (1.8-7.7); Neutrophils % 80.2 %; Nucleated Red Blood Cells % 0 %; Platelet Count 404 10^3/cmm (130-400); Red Blood Count 4.08 10^6/uL (4.1-5.3); Red Cell Distribution Width 11.6 % (12.1-15.1)
[2021-12-16] MEDS: ipratropium-albuterol 3 mL Neb INHALATION ×6 (03:23→23:28)
[2021-12-16 03:44] LABS: Alanine Aminotransferase 21 U/L (0-33); Albumin Level 3.6 g/dL (3.5-5.2); Alkaline Phosphatase 62 IU/L (35-105); Anion Gap 9.5 (5-19); Aspartate Amino Transferase 12 U/L (0-32); Blood Urea Nitrogen 23 mg/dL (8-23); Calcium 8.7 mg/dL (8.5-10.5); Carbon Dioxide 37 mmol/L (22-29); Chloride 98 mmol/L (98-107); Globulin 2.5 g/dL (1.3-4.6); Glucose 138 mg/dL (65-115); Osmolality Calculated 296 mOsm/kg (285-295); Potassium 4.5 mmol/L (3.5-5.1); Sodium 140 mmol/L (136-145); Total Bilirubin 0.3 mg/dL (0.15-1.2); Total Protein 6.1 g/dL (6.6-8.7)
[2021-12-16] MEDS: amlodipine 5 mg Tablet PO (05:01)
[2021-12-16] MEDS: aspirin 81 mg EC Tablet PO (05:01)
[2021-12-16 07:36] LABS: Glucose Point of Care 181 mg/dL (70-110)
[2021-12-16] MEDS: budesonide 0.5 mg/2 mL Neb INHALATION ×2 (07:39→20:00)
[2021-12-16] MEDS: metoprolol succinate ER (24 HR) 100 mg Tablet PO (08:17)
[2021-12-16] MEDS: benzonatate 100 mg Capsule 200 MG PO ×3 (08:17→20:32)
[2021-12-16] MEDS: loratadine 10 mg Tablet PO (08:17)
[2021-12-16] MEDS: nystatin 100,000 unit/mL UDC 5 mL 100000 UNIT PO ×3 (08:17→20:33)
[2021-12-16] MEDS: insulin lispro 100 unit/1 mL SUBCUT ×3 (08:17→18:03)
[2021-12-16] MEDS: polyethylene glycol 3350 Pkt 17 gm PO ×2 (08:17→18:03)
[2021-12-16] MEDS: doxycycline 100 mg Tablet PO ×2 (08:22→20:32)
--- NOTE | 2021-12-16 11:17 | PM.PN ---
Subjective Subjective: She is continuing to slowly have incremental improvements in terms of her breathing. Still coughing, but gradually improving. Was started on nystatin for oral candidiasis overnight as she reports burning/pain of her tongue. Vitals/I&O/Wt Last Vital Signs Temp 97.9 F 12/16/21 07:23 Pulse 74 12/16/21 11:12 Resp 20 H 12/16/21 11:07 BP 148/72 12/16/21 07:23 Pulse Ox 94 12/16/21 11:07 12/15/21 12/16/21 12/16/21 22:59 06:59 14:59 Intake Total 610 / 970 200 / 200 Output Total 250 / 250 250 / 500 Balance 360 / 720 -250 / 470 200 / 200 Physical Exam Narrative: at bedside Const: COMMON NORMALS: alert GENERAL APPEARANCE: cooperative ORIENTATION/CONSCIOUSNESS: Yes awake HENMT: COMMON NORMALS: normocephalic, EAC's normal, Normal external nose present and moist oral mucous membranes HEAD & SCALP: normocephalic NOSE: Normal external nose present EXTERNAL AUDITORY CANAL: EAC's normal Neck/C-Spine: COMMON NORMALS: no meningeal signs Chest: CHEST: Yes Symmetrical chest wall rise Resp: AUSCULTATION: no wheezes and diminished lung sounds Cardio: COMMON NORMALS: regular rate, regular rhythm and No murmurs present (Cardio) RATE: regular rate RHYTHM: regular rhythm GI: COMMON NORMALS: Normal to inspection, nondistended, normoactive bowel sounds present, Soft to palpation and non-tender PALPATION: Yes Soft to palpation Extremity: COMMON NORMALS: no pedal edema Neuro: COMMON NORMALS: moves all extremities SENSORIUM/ORIENTATION: Yes alert MENINGEAL SIGNS: Yes no meningeal signs Psych: COMMON NORMALS: mental status grossly normal Skin: COMMON NORMALS: no wounds RASHES: no rashes Data : 12/16/21 03:10 12/16/21 03:10 A&P Assessment and plan (1) COPD exacerbation: Gradual improvement, although continuing diminished lung sounds. Subjectively she is feeling a bit better. Slightly less cough. Continue IV steroids for now given slow progress. Oxygen requirement is slightly better, although still needing 3.5 L by nasal cannula. Continue IV steroids unchanged. We will also continue scheduled and as needed antitussives. Azithromycin added empirically and for some anti-inflammatory effect. Continue breathing treatments, including inhaled steroid as she sounds tight, wheezy. PT Now improving acute hypoxic respiratory failure with increasing oxygen requirement. Severe exacerbation of COPD with rhinovirus/enterovirus. Secondary to concern of superimposed bacterial bronchitis continue doxycycline. COVID PCR was negative. Status: Acute (2) Rhinovirus: PCR positive for rhinovirus Status: Acute (3) Hyperkalemia: Resolved with change diet to low potassium. Status: Acute Plan Oral candidiasis: Nystatin Elevated white blood cell count. Secondary to steroids. Hypertension. Continue metoprolol, Norvasc Tobacco dependency. Was offered nicotine patch which she refused. Type 2 diabetes. Sliding scale insulin. Anticipate glucose to improve once weaning down on steroids. Multiple other medical problems as outlined in past medical history Full code Lovenox for DVT prophylaxis Attestations Medical Necessity Statement*: Continue admission for assessment management of severe COPD exacerbation with rhino enterovirus infection. Coding Level of Care Code Acute Supervisor Stave Cutting for Danny Fwd Exam Comprehensive Diagnoses COPD exacerbation J44.1 Rhinovirus B34.8 Hyperkalemia E87.5
[2021-12-16 11:41] LABS: Glucose Point of Care 224 mg/dL (70-110)
--- NOTE | 2021-12-16 13:05 | PC.SOCIAL ---
IMM UPDATED IMM dated and initialed and copy given to patient
[2021-12-16] MEDS: azithromycin 500 MG in sodium chloride 0.9% 250 ML 250 MG IV (14:48)
[2021-12-16] MEDS: enoxaparin 40 mg/0.4 mL Syringe SUBCUT (14:48)
[2021-12-16 17:10] LABS: Glucose Point of Care 228 mg/dL (70-110)
--- NOTE | 2021-12-16 19:48 | ECG_ITS ---
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 Measurements Intervals [place] Rate: 76 P: 73 AK: 118 QRS: 74 QRSD: 94 T: 63 QT: 364 QTc: 410 Interpretive Statements SINUS RHYTHM WITH SHORT AK INTERVAL POSSIBLE LEFT ATRIAL ENLARGEMENT [-0.1mV P-WAVE IN V1/V2] SEPTAL MYOCARDIAL INFARCTION , OF INDETERMINATE AGE [40+ ms Q WAVE IN V1/V2] Compared to ECG 12/11/2021 15:21:20 Short AK interval now present Myocardial infarct finding now present Sinus tachycardia no longer present ST (T wave) deviation no longer present Electronically Signed On 12-16-2021 20:23:12 CDT by Matt Lind M.D. [id number]
[2021-12-16] MEDS: LORazepam 2 mg/mL INJ 1 mL 1 MG IVP (20:31)
[2021-12-16 20:42] LABS: Troponin(5th) Baseline 8 ng/L (0-10)
--- NOTE | 2021-12-16 21:50 | ECG_ITS ---
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 Measurements Intervals [place] Rate: 71 P: 66 TN: 120 QRS: 68 QRSD: 96 T: 51 QT: 387 QTc: 422 Interpretive Statements SINUS RHYTHM WITH OCCASIONAL SUPRAVENTRICULAR PREMATURE COMPLEXES POSSIBLE LEFT ATRIAL ENLARGEMENT [-0.1mV P-WAVE IN V1/V2] Compared to ECG 12/16/2021 19:55:39 Short TN interval no longer present Myocardial infarct finding no longer present Electronically Signed On 12-17-2021 19:45:19 CDT by Matt Lind M.D. [id number]
[2021-12-16 23:08] LABS: Troponin 5 2HR 8.65 ng/L (0-10)
[2021-12-17] VITALS (15 sets, daily range): BP systolic 127–163; BP diastolic 65–77; PULSE 63–89; RESP 16–18; TEMP 36.3–37; O2SAT 92–97
--- NOTE | 2021-12-17 01:50 | ECG_ITS ---
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 Measurements Intervals [place] Rate: 67 P: 76 AR: 125 QRS: 69 QRSD: 84 T: 57 QT: 385 QTc: 407 Interpretive Statements SINUS RHYTHM POSSIBLE LEFT ATRIAL ENLARGEMENT [-0.1mV P-WAVE IN V1/V2] Compared to ECG 12/16/2021 22:21:32 No significant changes Electronically Signed On 12-17-2021 19:44:27 CDT by Matt Lind M.D. [id number]
[2021-12-17 03:25] LABS: Basophils % 0.1 %; Hematocrit 40.9 % (37.0-47.0); Hemoglobin 13.1 g/dL (11.5-15.3); Lymphocytes % 6.1 %; Mean Corpuscular Hemoglobin 29.4 pg (28.0-34.0); Mean Corpuscular Volume 91.7 fl (81-99); Mean Platelet Volume 10.1 fL (7.4-10.4); Monocytes # 0.3 10^3/uL (0.2-0.9); Neutrophils # 15.34 10^3/uL (1.8-7.7); Neutrophils % 90.3 %; Nucleated Red Blood Cells % 0 %; Platelet Count 425 10^3/cmm (130-400); Red Blood Count 4.46 10^6/uL (4.1-5.3); Red Cell Distribution Width 11.8 % (12.1-15.1)
[2021-12-17 03:41] LABS: Anion Gap 12.9 (5-19); Blood Urea Nitrogen 21 mg/dL (8-23); Calcium 8.7 mg/dL (8.5-10.5); Carbon Dioxide 34 mmol/L (22-29); Chloride 93 mmol/L (98-107); Glucose 227 mg/dL (65-115); Osmolality Calculated 290 mOsm/kg (285-295); Potassium 4.9 mmol/L (3.5-5.1); Sodium 135 mmol/L (136-145)
[2021-12-17 03:42] LABS: Troponin 5 6HR 7.28 ng/L (0-10)
[2021-12-17] MEDS: aspirin 81 mg EC Tablet PO (05:46)
[2021-12-17] MEDS: amlodipine 5 mg Tablet PO (05:46)
[2021-12-17] MEDS: budesonide 0.5 mg/2 mL Neb INHALATION ×2 (07:55→20:55)
[2021-12-17] MEDS: ipratropium-albuterol 3 mL Neb INHALATION ×3 (07:55→20:55)
[2021-12-17 08:04] LABS: Glucose Point of Care 100 mg/dL (70-110)
[2021-12-17 08:04] LABS: Glucose Point of Care 317 mg/dL (70-110)
[2021-12-17] MEDS: loratadine 10 mg Tablet PO (08:16)
[2021-12-17] MEDS: insulin lispro 100 unit/1 mL SUBCUT ×4 (08:16→21:00)
[2021-12-17] MEDS: nystatin 100,000 unit/mL UDC 5 mL 100000 UNIT PO ×4 (08:16→20:50)
[2021-12-17] MEDS: benzonatate 100 mg Capsule 200 MG PO ×3 (08:16→20:51)
[2021-12-17] MEDS: metoprolol succinate ER (24 HR) 100 mg Tablet PO (08:16)
[2021-12-17] MEDS: polyethylene glycol 3350 Pkt 17 gm PO ×2 (08:17→17:16)
[2021-12-17] MEDS: doxycycline 100 mg Tablet PO ×2 (09:15→20:51)
[2021-12-17 11:37] LABS: Glucose Point of Care 217 mg/dL (70-110)
--- NOTE | 2021-12-17 15:30 | PM.PN ---
Subjective Subjective: 71-year-old female lives with her . She is O2 dependent at 3.5 L/min 24 hours a day. Patient reports scant sputum green but her breathing is much better than when she came in. Patient had been smoking half pack a day until 2 weeks ago. She states she did not smoke for about 2 weeks prior to admission. She does admit to some craving but states that all the cigarettes have been removed from the house and she is done smoking. Her does smoke a pipe but says he will do that outside. Patient states she has not walked far in the hospital yet Vitals/I&O/Wt Last Vital Signs Temp 97.9 F 12/17/21 12:10 Pulse 84 12/17/21 14:00 Resp 18 12/17/21 13:37 BP 129/67 12/17/21 12:10 Pulse Ox 92 12/17/21 13:37 12/17/21 12/17/21 12/17/21 06:59 14:59 22:59 Intake Total 400 / 400 Balance 400 / 400 Physical Exam Narrative: General well-developed well-nourished well-developed overweight female mildly short of breath. CV regular rate and rhythm Lungs prolonged x-ray phase and poor air movement with mild wheezes Abdomen plus bowel sounds soft nontender Calves no tenderness cords pedal edema Mood and affect normal Data : 12/17/21 02:40 12/17/21 02:40 A&P Assessment and plan (1) Rhinovirus: Consistent with cold patient is improving. Continue steroids anticipate oral steroid taper with prednisone outpatient Status: Acute (2) Tobacco dependency: Start nicotine patch 7 mg daily Status: Acute (3) Acute exacerbation of chronic obstructive pulmonary disease: Continue steroids nebulizers doxycycline and azithromycin. Increase activity. Start physical therapy. Anticipate discharge home tomorrow or day after Status: Acute Attestations Medical Necessity Statement*: Need to mobilize and clarify that she can do activities of daily living at home. Ambulate 3 times daily Time Spent in Patient Care: Greater than 35 minutes Coding Level of Care Code Acute Punching Machine Operator for Danny Casillas Diagnoses Rhinovirus B34.8 Tobacco dependency F17.200 Acute exacerbation of chronic obstructive pulmonary disease J44.1
[2021-12-17] MEDS: enoxaparin 40 mg/0.4 mL Syringe SUBCUT (15:37)
[2021-12-17] MEDS: azithromycin 500 MG in sodium chloride 0.9% 250 ML 250 MG IV (15:39)
--- NOTE | 2021-12-17 18:05 | PC.NURSE ---
patient stated that her daughter is bringing her [employer] for dinner.
[2021-12-17 18:06] LABS: Glucose Point of Care 163 mg/dL (70-110)
[2021-12-17 20:59] LABS: Glucose Point of Care 250 mg/dL (70-110)
[2021-12-17] MEDS: ALPRAZolam 0.5 mg Tablet 0.25 MG PO (21:41)
[2021-12-18] VITALS (21 sets, daily range): BP systolic 122–173; BP diastolic 66–80; PULSE 70–82; RESP 16–18; TEMP 36.2–36.6; O2SAT 86–95
[2021-12-18] MEDS: ipratropium-albuterol 3 mL Neb INHALATION ×7 (00:01→23:30)
[2021-12-18] MEDS: aspirin 81 mg EC Tablet PO (05:17)
[2021-12-18] MEDS: amlodipine 5 mg Tablet PO (05:17)
[2021-12-18 05:47] LABS: Basophils % 0.2 %; Hematocrit 37.1 % (37.0-47.0); Hemoglobin 12.3 g/dL (11.5-15.3); Lymphocytes % 5.7 %; Mean Corpuscular HGB Conc 33.2 g/dL (30.0-36.0); Mean Corpuscular Hemoglobin 29.6 pg (28.0-34.0); Mean Corpuscular Volume 89.2 fl (81-99); Monocytes # 0.4 10^3/uL (0.2-0.9); Monocytes % 2.1 %; Neutrophils % 90.8 %; Nucleated Red Blood Cells % 0 %; Platelet Count 344 10^3/cmm (130-400); Red Blood Count 4.16 10^6/uL (4.1-5.3); Red Cell Distribution Width 11.5 % (12.1-15.1); White Blood Count 17.4 10^3/uL (4.0-10.0)
[2021-12-18 06:05] LABS: Anion Gap 12.6 (5-19); Blood Urea Nitrogen 18 mg/dL (8-23); Calcium 8.4 mg/dL (8.5-10.5); Carbon Dioxide 32 mmol/L (22-29); Chloride 97 mmol/L (98-107); Glucose 227 mg/dL (65-115); Osmolality Calculated 293 mOsm/kg (285-295); Potassium 4.6 mmol/L (3.5-5.1); Sodium 137 mmol/L (136-145)
[2021-12-18] MEDS: insulin lispro 100 unit/1 mL SUBCUT ×4 (07:47→20:40)
[2021-12-18] MEDS: budesonide 0.5 mg/2 mL Neb INHALATION ×2 (07:57→19:44)
[2021-12-18] MEDS: nicotine 7 mg Patch 1 PATCH TRANSDERMA (08:41)
[2021-12-18] MEDS: doxycycline 100 mg Tablet PO ×2 (08:41→19:06)
[2021-12-18] MEDS: metoprolol succinate ER (24 HR) 100 mg Tablet PO (08:42)
[2021-12-18] MEDS: loratadine 10 mg Tablet PO (08:42)
[2021-12-18] MEDS: polyethylene glycol 3350 Pkt 17 gm PO ×2 (08:42→17:36)
[2021-12-18] MEDS: benzonatate 100 mg Capsule 200 MG PO ×3 (08:42→19:06)
[2021-12-18] MEDS: nystatin 100,000 unit/mL UDC 5 mL 100000 UNIT PO ×4 (08:42→19:06)
[2021-12-18 08:47] LABS: Glucose Point of Care 229 mg/dL (70-110)
--- NOTE | 2021-12-18 11:10 | PC.SOCIAL ---
IMM Updated Updated pt on IMM. No questions voiced. Provided pt a copy. Initialed, dated, & timed copy in chart.
[2021-12-18 12:15] LABS: Glucose Point of Care 260 mg/dL (70-110)
[2021-12-18] MEDS: azithromycin 500 MG in sodium chloride 0.9% 250 ML 250 MG IV (15:21)
[2021-12-18] MEDS: enoxaparin 40 mg/0.4 mL Syringe SUBCUT (15:21)
[2021-12-18 16:48] LABS: Glucose Point of Care 244 mg/dL (70-110)
--- NOTE | 2021-12-18 17:38 | PM.PN ---
Subjective Subjective: 71-year-old female lives with her . She is O2 dependent at 3.5 L/min 24 hours a day. Patient reports scant sputum green but her breathing is much better than when she came in. Patient had been smoking half pack a day until 2 weeks ago. She states she did not smoke for about 2 weeks prior to admission. Patient says her breathing is better and she would like to go home tomorrow. She denies having walked in the halls yet Medications: Reviewed: Yes Vitals/I&O/Wt Last Vital Signs Temp 97.4 F L 12/18/21 15:31 Pulse 78 12/18/21 15:38 Resp 18 12/18/21 15:38 BP 161/72 12/18/21 15:31 Pulse Ox 92 12/18/21 15:38 12/18/21 12/18/21 12/18/21 06:59 14:59 22:59 Intake Total 360 / 360 Balance 360 / 360 Physical Exam Narrative: General well-developed well-nourished well-developed overweight female mildly short of breath. CV regular rate and rhythm Lungs prolonged expiratory phase and poor air movement with mild wheezes Abdomen plus bowel sounds soft nontender Calves no tenderness cords pedal edema Mood and affect normal Data : 12/18/21 05:23 12/18/21 05:23 A&P Assessment and plan (1) Rhinovirus: Consistent with cold patient is improving. Continue steroids anticipate oral steroid taper with prednisone outpatient Status: Acute (2) Tobacco dependency: Start nicotine patch 7 mg daily Status: Acute (3) Acute exacerbation of chronic obstructive pulmonary disease: Continue steroids nebulizers doxycycline and azithromycin. Increase activity. Home walk test shows she qualifies for 4 L of oxygen anticipate discharge home tomorrow Status: Acute Attestations Medical Necessity Statement*: We will ambulate on oxygen. Time Spent in Patient Care: 16 - 35 minutes Coding Level of Care Code Acute Structural Engineering Project Manager for Danny Casillas Diagnoses Rhinovirus B34.8 Tobacco dependency F17.200 Acute exacerbation of chronic obstructive pulmonary disease J44.1
--- NOTE | 2021-12-18 19:12 | PC.NURSE ---
Addendum entered by Katie Doherty RN 12/18/21 19:15: Dr. Ojeda, not Dr. Carlson. Original Note: Dr. Carlson notified of patient asking for a Xanax to help her sleep.
[2021-12-18] MEDS: ALPRAZolam 0.5 mg Tablet 0.25 MG PO (20:35)
[2021-12-18 20:41] LABS: Glucose Point of Care 250 mg/dL (70-110)
[2021-12-19] VITALS (9 sets, daily range): BP systolic 137–153; BP diastolic 70–87; PULSE 61–96; RESP 16–24; TEMP -12.7–36.8; O2SAT 90–96
[2021-12-19] MEDS: ipratropium-albuterol 3 mL Neb INHALATION ×2 (04:07→08:29)
[2021-12-19] MEDS: amlodipine 5 mg Tablet PO (04:53)
[2021-12-19] MEDS: aspirin 81 mg EC Tablet PO (04:53)
[2021-12-19 05:14] LABS: Basophils % 0.1 %; Hematocrit 38.7 % (37.0-47.0); Hemoglobin 12.3 g/dL (11.5-15.3); Lymphocytes % 6.1 %; Mean Corpuscular HGB Conc 31.8 g/dL (30.0-36.0); Mean Corpuscular Hemoglobin 29.1 pg (28.0-34.0); Mean Corpuscular Volume 91.7 fl (81-99); Monocytes # 0.4 10^3/uL (0.2-0.9); Monocytes % 2.7 %; Neutrophils # 14.29 10^3/uL (1.8-7.7); Nucleated Red Blood Cells % 0 %; Platelet Count 374 10^3/cmm (130-400); Red Blood Count 4.22 10^6/uL (4.1-5.3); Red Cell Distribution Width 11.7 % (12.1-15.1); White Blood Count 16.1 10^3/uL (4.0-10.0)
[2021-12-19 05:45] LABS: Blood Urea Nitrogen 19 mg/dL (8-23); Calcium 8.4 mg/dL (8.5-10.5); Carbon Dioxide 33 mmol/L (22-29); Chloride 95 mmol/L (98-107); Glucose 216 mg/dL (65-115); Osmolality Calculated 291 mOsm/kg (285-295); Sodium 136 mmol/L (136-145)
[2021-12-19 05:46] LABS: Anion Gap 12.7 (5-19); Potassium 4.7 mmol/L (3.5-5.1)
[2021-12-19 07:14] LABS: Glucose Point of Care 213 mg/dL (70-110)
[2021-12-19] MEDS: insulin lispro 100 unit/1 mL SUBCUT (07:34)
[2021-12-19] MEDS: budesonide 0.5 mg/2 mL Neb INHALATION (08:29)
[2021-12-19] MEDS: benzonatate 100 mg Capsule 200 MG PO (08:56)
[2021-12-19] MEDS: nicotine 7 mg Patch 1 PATCH TRANSDERMA (08:56)
[2021-12-19] MEDS: metoprolol succinate ER (24 HR) 100 mg Tablet PO (08:56)
[2021-12-19] MEDS: loratadine 10 mg Tablet PO (08:56)
[2021-12-19] MEDS: doxycycline 100 mg Tablet PO (08:56)
[2021-12-19] MEDS: nystatin 100,000 unit/mL UDC 5 mL 100000 UNIT PO (08:57)
--- NOTE | 2021-12-19 10:05 | PM.DCS ---
Discharge Providers Date of Admission: 12/11/21 10:52 Date of Discharge: December 19, 2021 Attending Provider at Admission: Heriberto Curran MD Attending Provider at Discharge: Douglas Elaine MD Primary Care Provider: Donald Joiner Diagnoses at Discharge Discharge Diagnosis (1) Rhinovirus: Details from hospital stay: Resolved Status: Acute (2) Tobacco dependency: Details from hospital stay: Patient counseled daily to quit smoking and her family has cleared out the cigarettes from the house as well as the ashtrays and patient says she is done smoking Status: Acute (3) Acute exacerbation of chronic obstructive pulmonary disease: Details from hospital stay: Exacerbated by 1 and 2 she is improved. She will need 3.5 L/min oxygen 24 hours a day Status: Acute Reason for Visit Reason for Visit: SOB/ WHEEZING Hospital Course Hospital Course 71-year-old female lives with her . She was smoking half pack per day until 2 weeks before she was admitted and then just a few cigarettes a day. She came in and was found to have rhinovirus. Chest x-ray showed no pneumonia. She did have some green phlegm. She has been on 8 days of antibiotics and steroids plus nebulizers. Patient has been ambulating with therapy and independent. Patient will be discharged on a prednisone taper with the addition of budesonide to her nebulizers. She required sliding scale insulin here in part due to the steroids but will be discharged on glipizide plus resumed metformin. She has follow-up with her management specialist and will also follow-up with her primary care physician Physical Exam Narrative: General well-developed well-nourished overweight female in no acute cardiopulmonary distress CV regular rate and rhythm Lungs poor air movement prolonged expiratory phase no crackles or wheezes Calves no tenderness cords pedal edema Mood and affect normal Discharge Data Studies Completed and Pending Completed Studies During Hospitalization Category Date Time Status XR chest 1V portable [id number] Urgent Exams 12/11/21 10:17 Completed Radiology Impressions Chest X-Ray 12/11/21 10:17 IMPRESSION: Unremarkable chest radiograph. Laboratory Results WBC 16.1 10^3/uL (4.0-10.0) H 12/19/21 05:03 RBC 4.22 10^6/uL (4.1-5.3) 12/19/21 05:03 Hgb 12.3 g/dL (11.5-15.3) 12/19/21 05:03 Hct 38.7 % (37.0-47.0) 12/19/21 05:03 MCV 91.7 fl (81-99) 12/19/21 05:03 MCH 29.1 pg (28.0-34.0) 12/19/21 05:03 MCHC 31.8 g/dL (30.0-36.0) 12/19/21 05:03 RDW 11.7 % (12.1-15.1) L 12/19/21 05:03 Plt Count 374 10^3/cmm (130-400) 12/19/21 05:03 MPV 10.0 fL (7.4-10.4) 12/19/21 05:03 Neut % (Auto) 89.0 % 12/19/21 05:03 Lymph % (Auto) 6.1 % 12/19/21 05:03 [place] % (Auto) 2.7 % 12/19/21 05:03 Eos % (Auto) 0.0 % 12/19/21 05:03 Baso % (Auto) 0.1 % 12/19/21 05:03 Neut # (Auto) 14.29 10^3/uL (1.8-7.7) H 12/19/21 05:03 Lymph # (Auto) 1.0 10^3/uL (0.8-4.8) 12/19/21 05:03 [place] # (Auto) 0.4 10^3/uL (0.2-0.9) 12/19/21 05:03 Eos # (Auto) 0.0 10^3/uL (0.0-0.8) 12/19/21 05:03 Baso # (Auto) 0.0 10^3/uL (0.0-0.1) 12/19/21 05:03 Nucleated RBC % (auto) 0 % 12/19/21 05:03 Nucleated RBCs # 0.0 /100WBC 12/19/21 05:03 Specimen Type Arterial 12/11/21 10:28 Sample Site Brachial, left 12/11/21 10:28 ABG pH 7.34 (7.35-7.45) L 12/11/21 10:28 ABG pCO2 51.9 mmHg (35-45) H 12/11/21 10:28 ABG pO2 90.2 mmHg (80.0-100.0) 12/11/21 10:28 ABG HCO3 27.7 mmol/L (22-26) H 12/11/21 10:28 ABG Base Excess 1.0 mmol/L (-2.0-2.0) 12/11/21 10:28 Gonzalez Test N/a 12/11/21 10:28 Hematocrit 39.4 % (37-47) 12/11/21 10:28 Hgb O2 Saturation 95.6 % (95-100) 12/11/21 10:28 Carboxyhemoglobin 0.3 %THgb (0.4-20.1) L 12/11/21 10:28 Methemoglobin 1.2 % (0.4-1.5) 12/11/21 10:28 Total Hemoglobin 12.8 g/dL (12-16) 12/11/21 10:28 O2 Delivery Device Nc 12/11/21 10:28 O2 Liters/Min 3.5 % 12/11/21 10:28 Insurance Processing Clerk ID Gd 12/11/21 10:28 Sodium 136 mmol/L (136-145) 12/19/21 05:03 Potassium 4.7 mmol/L (3.5-5.1) 12/19/21 05:03 Chloride 95 mmol/L (98-107) L 12/19/21 05:03 Carbon Dioxide 33 mmol/L (22-29) H 12/19/21 05:03 Anion Gap 12.7 (5-19) 12/19/21 05:03 BUN 19 mg/dL (8-23) 12/19/21 05:03 Creatinine 0.5 mg/dL (0.5-0.9) 12/19/21 05:03 GFR Calculation Not Reportable 12/19/21 05:03 Glucose 216 mg/dL (65-115) H 12/19/21 05:03 POC Glucose 213 mg/dL (70-110) H 12/19/21 06:56 Calculated Osmolality 291 mOsm/kg (285-295) 12/19/21 05:03 Calcium 8.4 mg/dL (8.5-10.5) L 12/19/21 05:03 Magnesium 2.3 mg/dL (1.7-2.3) 12/12/21 05:06 Total Bilirubin 0.3 mg/dL (0.15-1.2) 12/16/21 03:10 AST 12 U/L (0-32) 12/16/21 03:10 ALT 21 U/L (0-33) 12/16/21 03:10 Alkaline Phosphatase 62 IU/L (35-105) 12/16/21 03:10 Troponin T Gen 5 ng/L 21 ng/L (0-10) H 12/11/21 11:50 Troponin T Baseline 8 ng/L (0-10) 12/16/21 20:15 Troponin T 120 Minute 8.65 ng/L (0-10) 12/16/21 22:18 Delta Troponin T Not Reportable 12/16/21 22:18 Troponin T Hi Sens 6Hr 7.28 ng/L (0-10) 12/17/21 02:40 Troponin T Hi Sens 6Hr Delta Not Reportable 12/17/21 02:40 Total Protein 6.1 g/dL (6.6-8.7) L 12/16/21 03:10 Albumin 3.6 g/dL (3.5-5.2) 12/16/21 03:10 Globulin 2.5 g/dL (1.3-4.6) 12/16/21 03:10 Vitals Last Vital Signs Temp 97.7 F 12/19/21 07:24 Pulse 72 12/19/21 08:35 Resp 18 12/19/21 08:29 BP 137/70 12/19/21 07:24 Pulse Ox 96 12/19/21 08:29 Discharge Plan Discharge Patient Disposition: Home Condition: Stable Prescriptions: New polyethylene glycol 3350 17 gram Powder In Packet 17 g PO BID Qty: 30 0RF budesonide 0.5 mg/2 mL Suspension For Nebulization 0.5 mg inhalation BID.RESPIRATORY Qty: 60 0RF nicotine 7 mg/24 hr Patch 24 Hour 1 patch transdermal DAILY Qty: 14 0RF glipizide 10 mg tablet extended release 24hr 10 mg PO DAILY Qty: 30 0RF prednisone 10 mg tablet 10 mg PO DAILY Qty: 60 0RF Rx Instructions: take 4 daily for 3 days, 3 daily for 3 days, 2 daily for 3 days, 1 daily for 3 days and stop Continued albuterol sulfate 2.5 mg /3 mL (0.083 %) Solution For Nebulization 2.5 mg INHALATION Q4H PRN (Reason: Shortness Of Breath) 0RF cetirizine 10 mg Tablet 10 mg PO DAILY PRN (Reason: Allergy Symptoms) 0RF metoprolol succinate 100 mg Tablet Extended Release 24 Hr 100 mg PO DAILY 0RF amlodipine 5 mg Tablet 5 mg PO QAM 0RF aspirin 81 mg Tablet,Delayed Release (Dr/Ec) 81 mg PO QAM 0RF albuterol sulfate [ProAir HFA] 90 mcg/actuation Hfa Aerosol Inhaler 2 puff INHALATION Q4H PRN (Reason: Shortness Of Breath) 0RF Combivent Respimat 20-100 mcg/actuation Mist 1 puff INHALATION Q6H 0RF prednisone 50 mg tablet 50 mg PO DAILY PRN (Reason: copd exacerbation) 5 Days Qty: 5 0RF metformin 500 mg Tablet 500 mg PO BID 0RF dextromethorphan-guaifenesin 10-100 mg/5 mL Liquid 10 ml PO Q4H PRN (Reason: Cough) 0RF Fish Oil 1 cap PO DAILY 0RF Discontinued NyQuil 7.5-60-30-1,000 mg/30 mL Liquid 30 ml PO Q6H PRN (Reason: Cough) 0RF Discharge Orders: Discharge Order (Routine); Ordered 12/19/21 Ordered By: Douglas Elaine Referrals: [facility] [Outside] Lesia Mcconnell MD [Physician] - 7-10 days (COPD) Discharge Diet: Diabetic Discharge Activity: Increase activity as tolerated Patient Instructions: Opioid Safety Activity Restrictions/Additional Instructions: Referral to pulmonary rehabilitation Discharge Attestations Time Spent in Discharge Care*: greater than 30 min Specific Discharge Activities: Other discharge activites (optional): Stop smoking completely Check your blood sugars twice a day and record Take your prednisone taper Follow diabetic weight loss diet Increase activity as tolerated using 3.5 L/min at rest although you can increase oxygen for activity. Return oxygen to 3.5 L/min whenever resting or sleeping Follow-up with your PCP and your management specialist both in 1 week Time Spent in Smoking Cessation: 5 minutes spent in smoking cessation counseling today and 5 minutes daily for the last 2 days as well Quality Metrics Clinical Quality Measures [ No reported AMI, CVA or VTE this stay] Coding Level of Care Code Acute Chg FW DC note Diagnoses Rhinovirus B34.8 Tobacco dependency F17.200 Acute exacerbation of chronic obstructive pulmonary disease J44.1
[2021-12-19 11:19] LABS: Glucose Point of Care 279 mg/dL (70-110)
== END 2021-12-19 11:25 | disposition home health service (06) | DRG 190 ==
LOC: ER 11:03 → MEDSURG 12:50
PROVIDERS: Internal Medicine; Admitting Provider Internal Medicine; Emergency Provider Emergency Medicine; PCP Family Medicine; Visit Provider Internal Medicine
DX: J44.1 Chronic obstructive pulmonary disease with (acute) exacerbation (principal); J96.21 Acute and chronic respiratory failure with hypoxia; B37.0 Candidal stomatitis; Z99.81 Dependence on supplemental oxygen; F17.210 Nicotine dependence, cigarettes, uncomplicated; B97.89 Other viral agents as the cause of diseases classified elsewhere; E11.9 Type 2 diabetes mellitus without complications; I10 Essential (primary) hypertension; E78.5 Hyperlipidemia, unspecified; Z79.51 Long term (current) use of inhaled steroids; Z79.82 Long term (current) use of aspirin; Z79.52 Long term (current) use of systemic steroids; Z79.84 Long term (current) use of oral hypoglycemic drugs
CPT/HCPCS: 36415; 36416; 36600; 71045; 80048; 80053; 82805; 82962; 83735; 83880; 84132; 84484; 85025; 87631; 87635; 87801; 93005; 94640; 94762; 96365; 96372; 97161; 97530; 99285; J0456; J1650; J1815; J2060; J2930; J3475; J7050; J7626

== ENCOUNTER → 2021-12-28 09:30 | Outpatient (BNVA) | payer MEDICARE, OTHER, SELFPAY | PROVIDERS: PCP Family Medicine; Visit Provider Internal Medicine Critical Care Medicine | DX: J44.9 Chronic obstructive pulmonary disease, unspecified (principal); J44.1 Chronic obstructive pulmonary disease with (acute) exacerbation; J96.11 Chronic respiratory failure with hypoxia; J96.12 Chronic respiratory failure with hypercapnia; Z87.891 Personal history of nicotine dependence | CPT/HCPCS: 99204 ==

== ENCOUNTER → 2022-01-01 09:45 | Outpatient (BNVA) | payer MEDICARE, OTHER, SELFPAY | PROVIDERS: PCP Family Medicine; Visit Provider Nurse Practitioner Family | DX: I96 Gangrene, not elsewhere classified (principal); L89.152 Pressure ulcer of sacral region, stage 2 | CPT/HCPCS: 99213 ==

== ENCOUNTER → 2022-01-08 10:31 | Outpatient (BNVA) | payer MEDICARE, OTHER, SELFPAY | PROVIDERS: PCP Family Medicine; Visit Provider Nurse Practitioner Family | DX: Z09 Encounter for follow-up examination after completed treatment for conditions other than malignant neoplasm (principal) | CPT/HCPCS: 99212 ==

== ENCOUNTER 2022-01-17 15:52 | Outpatient (CLI) | payer MEDICARE, OTHER, SELFPAY ==
[2022-01-17 16:56] LABS: Hematocrit 37.3 % (37.0-47.0); Hemoglobin 11.7 g/dL (11.5-15.3); Mean Corpuscular HGB Conc 31.4 g/dL (30.0-36.0); Mean Corpuscular Hemoglobin 28.7 pg (28.0-34.0); Mean Corpuscular Volume 91.4 fl (81-99); Mean Platelet Volume 9.6 fL (7.4-10.4); Platelet Count 502 10^3/cmm (130-400); Red Blood Count 4.08 10^6/uL (4.1-5.3); Red Cell Distribution Width 12.1 % (12.1-15.1); White Blood Count 11.9 10^3/uL (4.0-10.0)
[2022-01-17 17:11] LABS: Alanine Aminotransferase 15 U/L (0-33); Albumin Level 4.2 g/dL (3.5-5.2); Alkaline Phosphatase 93 IU/L (35-105); Anion Gap 11.9 (5-19); Aspartate Amino Transferase 15 U/L (0-32); Blood Urea Nitrogen 10 mg/dL (8-23); Calcium 9.4 mg/dL (8.5-10.5); Carbon Dioxide 36 mmol/L (22-29); Chloride 97 mmol/L (98-107); Globulin 3.5 g/dL (1.3-4.6); Glucose 149 mg/dL (65-115); Osmolality Calculated 294 mOsm/kg (285-295); Potassium 3.9 mmol/L (3.5-5.1); Sodium 141 mmol/L (136-145); Total Bilirubin 0.2 mg/dL (0.15-1.2); Total Protein 7.7 g/dL (6.6-8.7)
[2022-01-17 17:44] LABS: Absolute Eosinophils 0.2 10^3/cmm (0.0-0.7); Absolute Neutrophil 9.8 10^3/cmm (1.4-6.5); Absolute Segmented Neutrophil 9.8 10/cmm (1.6-7.1); Eosinophils 2 %; Giant Platelets 1+; Lymphocytes 4 %; Lymphocytes Absolute 1.7 10^3/cmm (1.2-3.4); Monocytes Absolute 0.2 10^3/cmm (0.1-0.6); Platelet Estimate Increased (Normal); Segmented Neutrophils 82 %; Total Cells Counted 100 (0-100)
== END 2022-01-17 15:53 | disposition home or self-care (01) ==
PROVIDERS: PCP Family Medicine; Visit Provider Family Medicine
DX: J96.11 Chronic respiratory failure with hypoxia (principal); E11.65 Type 2 diabetes mellitus with hyperglycemia
CPT/HCPCS: 80053; 85007; 85027

== ENCOUNTER 2022-01-31 09:04 | Outpatient (CLI) | payer MEDICARE, OTHER, SELFPAY ==
--- NOTE | 2022-01-31 09:12 | CT_ITS ---
WS: [id number] LDCT LUNG CANCER SCREENING HISTORY: Lung cancer screening TECHNIQUE: Axial imaging performed from the apices to 1 cm below the costophrenic angles. Coronal and sagittal reformats are submitted with axial MIP series. All CT scans at [facility] use at least one of these dose optimization techniques: automated exposure control; mA and/or kV adjustment per patient size (includes targeted exams where dose is matched to clinical indication); or iterativ e reconstruction. DLP: 72.71 mGy.cm DIvol: Mean CTDIvol: 1.60 (mGy) COMPARISON: 09/17/2018 Diagnostic quality: Satisfactory Lung Nodules: Stable 2 mm nodule in the posterior LEFT upper lobe. Stable 3 mm nodule posterior RIGHT upper lobe. No pulmonary mass or other nodules. Lungs: Chronic centrilobular emphysema. Heart: Normal size. No pericardial effusion. Other findings: None. CT/CT lung screening [id number] IMPRESSION: LUNG-RADS: 2-Benign Appearance or Behavior FOLLOW UP: 12 Month: Continue annual screening with LDCT OTHER FINDINGS (S MODIFIER): None.
== END 2022-01-31 09:05 | disposition home or self-care (01) ==
LOC: RAD 09:05
PROVIDERS: PCP Family Medicine; Visit Provider Internal Medicine Critical Care Medicine
DX: Z12.2 Encounter for screening for malignant neoplasm of respiratory organs (principal); F17.200 Nicotine dependence, unspecified, uncomplicated
CPT/HCPCS: 71271

== ENCOUNTER 2022-02-20 10:36 | Outpatient (CLI) | payer MEDICARE, OTHER, SELFPAY ==
--- NOTE | 2022-02-20 13:01 | PFTS_ITS ---
Date of Study:02/20/22 Date of Dictation: MECHANICS: Forced vital capacity (FVC) is reduced. Forced expiratory volume in one second (FEV1) is reduced. FEV1/FVC is reduced. FLOW VOLUME LOOP: Reduced flow at all lung volumes with significant scooping. LUNG VOLUMES: Total lung capacity (TLC) is normal. Residual volume (RV) is increased. DIFFUSING CAPACITY FOR CARBON MONOXIDE: Severely reduced. INTERPRETATION: The postbronchodilator spirometry is consistent with severe airflow obstruction. There is no significant postbronchodilator response. Lung volumes are consistent with air trapping. Gas exchange (DLCO) is severely reduced. MTDD
== END 2022-02-20 10:37 | disposition home or self-care (01) ==
PROVIDERS: PCP Family Medicine; Visit Provider Internal Medicine Critical Care Medicine
DX: J44.9 Chronic obstructive pulmonary disease, unspecified (principal)
CPT/HCPCS: 94060; 94618; 94726; 94729; J7614

== ENCOUNTER 2022-04-17 09:20 | Emergency (ER) | payer MEDICARE, OTHER, SELFPAY ==
[2022-04-17 09:22] VITALS: BP 136/73; PULSE 80; RESP 20; TEMP 36.3; O2SAT 98; BMI 28.3
[2022-04-17 09:30] VITALS: BP 134/75; PULSE 80; RESP 21; O2SAT 97
--- NOTE | 2022-04-17 09:30 | XR_ITS ---
WS: [id number] Exam: XR chest 1V portable [id number] Date/Time of Exam: 04/17/2022 9:32 AM Reason For Exam: SOB Comparison 12/11/2021. The lungs are clear and fully expanded. Normal cardiomediastinal silhouette. Bony structures are inta ct. XR/XR chest 1V portable [id number] IMPRESSION: 1. Negative chest. No change.
--- NOTE | 2022-04-17 09:32 | PC.NURSE ---
pt placed on continuous spo2, nibp, and cm.
--- NOTE | 2022-04-17 09:37 | ED_ITS ---
HPI - SOB/Dyspnea General: Chief Complaint: Shortness of Breath/Dyspnea Stated Complaint: SOB Time Seen by Provider: 04/17/22 09:34 Source: patient Mode of arrival: EMS History of Present Illness: HPI Narrative: 21-year-old female presents emergency room via EMS after complaint of increasing shortness of breath at home. She normally is on 3-3 and half liters by nasal cannula. She is complaining of worsening shortness of breath and difficulty breathing and wheezing. She took a budesonide out treatment with no relief. EMS was called on their arrival she was at 92% on her 3 and half liters I did bu mp her to 4 L. She was given a DuoNeb and 125 of Solu-Medrol she is significantly improved on arrival here and is satting 98% on 4 L on arrival. States her wheezing and her breathing have significantly improved she denies any chest pain. MD elicited complaint: shortness of breath and cough Pertinent past history: COPD Onset (ago): hour(s) Timing: constant Severity: moderate Exacerbating factors: exertion and coughing Relieving factors: oxygen, rest and bronchodilators Known history of: COPD Associated symptoms: Deny abdominal pain, chest congestion, chest pain, cough, diaphoresis, dizziness, extremity pain, fever(s), hemoptysis, lightheadedness, myalgias, nausea, orthopnea, palpitations, paresthesias, polydipsia, polyuria, rash, sense of impending doom, syncope or vomiting Treatment prior to arrival: oxygen, bronchodilator and other (Steroid) Review of Systems Const: Denies: fever(s), chills, fatigue, malaise or diaphoresis ENMT: Denies: throat pain, ear or mastoid pain, nasal discharge or nasal kayla estion Card: Denies: chest pain, palpitations, swelling of feet/ankles, lightheadedness, syncope or orthopnea Resp: Denies: hemoptysis or chest congestion GI: Denies: abdominal pain, nausea or vomiting : Denies: flank pain, difficulty voiding, dysuria, urinary frequency or urin yon urgency Musc: Denies: neck pain, back pain or extremity pain Skin/Breast: Denies: rash or pruritus Neuro: Denies: dizziness Endo: Denies: polyuria or polydipsia PFS ED PFSH: Medical History COPD (chronic obstructive pulmonary disease) COPD exacerbation Diabetes mellitus type 2 in nonobese Hypertension Tobacco dependency Surgical History History of elbow surgery History of hand surgery History of hysterectomy Family History Other Cancer Social History Smoking and tobacco status: former smoker Quit status (tobacco): has quit using tobacco Year quit tobacco: November 2020 Former quit date comment: 1 ppd X 58 years, started at age 13 Alcohol intake: never Physical Exam Const: COMMON NORMALS: no acute distress GENERAL APPEARANCE: cooperative and comfortable ORIENTATION/CONSCIOUSNESS: Yes awake, Yes oriented to person, Yes oriented to place and Yes oriented to time HENMT: COMMON NORMALS: normocephalic, atraumatic and hearing grossly normal bilaterally HEAD & SCALP: normocephalic and atraumatic Resp: COMMON NORMALS: normal respiratory effort, No retractions and No use of accessory muscles AUSCULTATION: wheezes and diminished lung sounds Cardio: COMMON NORMALS: regular rate, regular rhythm and No murmurs present (Cardio) RATE: regular rate RHYTHM: regular rhythm GI: COMMON NORMALS: Soft to palpation and No hepatosplenomegaly present AUSCULTATION: Yes normoactive bowel sounds PALPATION: Yes Soft to palpation, No Tenderness to palpation present (GI), No Guarding due to palpation present (GI) and Yes No hepatosplenomegaly present Extremity: COMMON NORMALS: normal to inspection, capillary refill normal, no clubbing, cyanosis or edema, no calf tenderness and no pedal edema Neuro: SENSORIUM/ORIENTATION: Yes oriented to person, Yes oriented to place and Yes oriented to time Skin: COMMON NORMALS: no rashes or lesions noted GENERAL SKIN EXAM: no rashes or lesions noted Course Vital Signs: Vital signs: Vital Signs Temperature 97.3 F L 04/17/22 09:22 Pulse Rate 82 04/17/22 10:30 Respiratory Rate 18 04/17/22 10:30 Blood Pressure 151/71 04/17/22 10:30 Pulse Oximetry 96 04/17/22 10:30 Oxygen Delivery Me thod 04/17/22 09:22 Oxygen Flow Rate 4 04/17/22 09:22 MDM - SOB/Dyspnea Medical Decision Making Patient improved. Already gotten discharged home on a steroid taper and doxycycline. Additionally she took a budesonide nebulizer earlier this morning she does not have ipratropium albuterol at home I think she would be better served without we gave her prescription for that made arrangements for her to get into the [facility] program. Medical Records I reviewed the patient's medical records. Lab Data I reviewed the patient's lab results. : 04/17/22 09:40 04/17/22 09:40 Labs/Radiology: Radiology Impressions Chest X-Ray 04/17/22 09:30 IMPRESSION: 1. Negative chest. No change. Laboratory Results WBC 21.2 10^3/uL (4.0-10.0) H 04/17/22 09:40 RBC 4.29 10^6/uL (4.1-5.3) 04/17/22 09:40 Hgb 12.5 g/dL (11.5-15.3) 04/17/22 09:40 Hct 39.7 % (37.0-47.0) 04/17/22 09:40 MCV 92.5 fl (81-99) 04/17/22 09:40 MCH 29.1 pg (28.0-34.0) 04/17/22 09:40 MCHC 31.5 g/dL (30.0-36.0) 04/17/22 09:40 RDW 11.7 % (12.1-15.1) L 04/17/22 09:40 Plt Count 317 10^3/cmm (130-400) 04/17/22 09:40 MPV 9.9 fL (7.4-10.4) 04/17/22 09:40 Neut % (Auto) 83.4 % 04/17/22 09:40 Lymph % (Auto) 10.9 % 04/17/22 09:40 [place] % (Auto) 4.8 % 04/17/22 09:40 Eos % (Auto) 0.1 % 04/17/22 09:40 Baso % (Auto) 0.3 % 04/17/22 09:40 Neut # (Auto) 17.65 10^3/uL (1.8-7.7) H 04/17/22 09:40 Lymph # (Auto) 2.3 10^3/uL (0.8-4.8) 04/17/22 09:40 [place] # (Auto) 1.0 10^3/uL (0.2-0.9) H 04/17/22 09:40 Eos # (Auto) 0.0 10^3/uL (0.0-0.8) 04/17/22 09:40 Baso # (Auto) 0.1 10^3/uL (0.0-0.1) 04/17/22 09:40 Nucleated RBC % (auto) 0 % 04/17/22 09:40 Nucleated RBCs # 0.0 /100WBC 04/17/22 09:40 Sodium 138 mmol/L (136-145) 04/17/22 09:40 Potassium 4.0 mmol/L (3.5-5.1) 04/17/22 09:40 Chloride 98 mmol/L (98-107) 04/17/22 09:40 Carbon Dioxide 29 mmol/L (22-29) 04/17/22 09:40 Anion Gap 15.0 (5-19) 04/17/22 09:40 BUN 8 mg/dL (8-23) 04/17/22 09:40 Creatinine 0.6 mg/dL (0.5-0.9) 04/17/22 09:40 GFR Calculation Not Reportable 04/17/22 09:40 Glucose 121 mg/dL (65-115) H 04/17/22 09:40 Calculated Osmolality 286 mOsm/kg (285-295) 04/17/22 09:40 Calcium 8.9 mg/dL (8.5-10.5) 04/17/22 09:40 Total Bilirubin 0.2 mg/dL (0.15-1.2) 04/17/22 09:40 AST 15 U/L (0-32) 04/17/22 09:40 ALT 16 U/L (0-33) 04/17/22 09:40 Alkaline Phosphatase 83 U/L (35-105) 04/17/22 09:40 Total Protein 7.3 g/dL (6.6-8.7) 04/17/22 09:40 Albumin 3.8 g/dL (3.5-5.2) 04/17/22 09:40 Globulin 3.5 g/dL (1.3-4.6) 04/17/22 09:40 Discharge Plan Discharge Patient Disposition: Home Clinical Impression: Acute exacerbation of chronic obstructive pulmonary disease Condition: Stable Prescriptions: New doxycycline hyclate 100 mg capsule 100 mg PO BID 10 Days Qty: 20 0RF prednisone 20 mg tablet 20 mg PO TID Qty: 15 0RF Rx Instructions: 1 p.o. 3 times daily x3 days, 1 p.o. twice daily x2 days, 1 p.o. daily x2 days ipratropium-albuterol 0.5 mg-3 mg(2.5 mg base)/3 mL solution for nebulization 3 ml inhalation Q4H PRN (Reason: shortness of breath or wheezing) Qty: 180 0RF Held prednisone 10 mg tablet 10 mg PO DAILY Qty: 60 0RF Hold Instructions: Resume on 04/24/22. Rx Instructions: take 4 daily for 3 days, 3 daily for 3 days, 2 daily for 3 days, 1 daily for 3 days and stop No Action famotidine 20 mg tablet 20 mg PO DAILY bupropion HCl 150 mg tablet sustained-release 12 hr 150 mg PO BID formoterol fumarate [Perforomist] 20 mcg/2 mL solution for nebulization 2 ml inhalation BID Qty: 120 6RF Yupelri 175 mcg/3 mL solution for nebulization 175 mcg inhalation DAILY Qty: 90 6RF budesonide 0.5 mg/2 mL suspension for nebulization 0.5 mg inhalation BID Qty: 60 6RF albuterol sulfate 2.5 mg /3 mL (0.083 %) Solution For Nebulization 2.5 mg INHALATION Q4H PRN (Reason: Shortness Of Breath) cetirizine 10 mg Tablet 10 mg PO DAILY PRN (Reason: Allergy Symptoms) metoprolol succinate 100 mg Tablet Extended Release 24 Hr 100 mg PO DAILY amlodipine 5 mg Tablet 5 mg PO QAM aspirin 81 mg Tablet,Delayed Release (Dr/Ec) 81 mg PO QAM albuterol sulfate [ProAir HFA] 90 mcg/actuation Hfa Aerosol Inhaler 2 puff INHALATION Q4H PRN (Reason: Shortness Of Breath) metformin 500 mg Tablet 500 mg PO BID dextromethorphan-guaifenesin 10-100 mg/5 mL Liquid 10 ml PO Q4H PRN (Reason: Cough) Fish Oil 1 cap PO DAILY polyethylene glycol 3350 17 gram Powder In Packet 17 g PO BID Qty: 30 0RF nicotine 7 mg/24 hr Patch 24 Hour 1 patch transdermal DAILY Qty: 14 0RF glipizide 10 mg tablet extended release 24hr 10 mg PO DAILY Qty: 30 0RF Discharge Orders: Discharge ED (Routine); Ordered 04/17/22 Ordered By: Deacon Hooper Referrals: Donald Joiner [Primary Care Provider] - Patient Instructions: Opioid Safety, Pain Management Coding Level of Care Code ED Bread Dough Mixer for Chg Fwd Exam Detailed
[2022-04-17 09:45] LABS: Basophils # 0.1 10^3/uL (0.0-0.1); Basophils % 0.3 %; Eosinophils % 0.1 %; Hematocrit 39.7 % (37.0-47.0); Hemoglobin 12.5 g/dL (11.5-15.3); Lymphocytes # 2.3 10^3/uL (0.8-4.8); Lymphocytes % 10.9 %; Mean Corpuscular HGB Conc 31.5 g/dL (30.0-36.0); Mean Corpuscular Hemoglobin 29.1 pg (28.0-34.0); Mean Corpuscular Volume 92.5 fl (81-99); Mean Platelet Volume 9.9 fL (7.4-10.4); Monocytes % 4.8 %; Neutrophils # 17.65 10^3/uL (1.8-7.7); Neutrophils % 83.4 %; Nucleated Red Blood Cells % 0 %; Platelet Count 317 10^3/cmm (130-400); Red Blood Count 4.29 10^6/uL (4.1-5.3); Red Cell Distribution Width 11.7 % (12.1-15.1); White Blood Count 21.2 10^3/uL (4.0-10.0)
[2022-04-17 10:04] LABS: Alanine Aminotransferase 16 U/L (0-33); Albumin Level 3.8 g/dL (3.5-5.2); Alkaline Phosphatase 83 U/L (35-105); Aspartate Amino Transferase 15 U/L (0-32); Blood Urea Nitrogen 8 mg/dL (8-23); Calcium 8.9 mg/dL (8.5-10.5); Carbon Dioxide 29 mmol/L (22-29); Chloride 98 mmol/L (98-107); Globulin 3.5 g/dL (1.3-4.6); Glucose 121 mg/dL (65-115); Osmolality Calculated 286 mOsm/kg (285-295); Sodium 138 mmol/L (136-145); Total Bilirubin 0.2 mg/dL (0.15-1.2); Total Protein 7.3 g/dL (6.6-8.7)
[2022-04-17 10:30] VITALS: BP 151/71; PULSE 82; RESP 18; O2SAT 96
== END 2022-04-17 11:18 | disposition home or self-care (01) ==
PROVIDERS: Emergency Provider Family Medicine; PCP Family Medicine
DX: J44.1 Chronic obstructive pulmonary disease with (acute) exacerbation (principal); Z79.82 Long term (current) use of aspirin; Z79.84 Long term (current) use of oral hypoglycemic drugs; E11.9 Type 2 diabetes mellitus without complications; I10 Essential (primary) hypertension; Z87.891 Personal history of nicotine dependence
CPT/HCPCS: 71045; 80053; 85025; 99284

== ENCOUNTER 2022-05-20 12:00 | Outpatient (CLI) | payer MEDICARE, OTHER, SELFPAY | END 2022-05-20 12:01 | disposition home or self-care (01) | LOC: SLEEP 05-21 09:05 | PROVIDERS: PCP Family Medicine; Visit Provider Internal Medicine Critical Care Medicine | DX: J44.9 Chronic obstructive pulmonary disease, unspecified (principal) | CPT/HCPCS: 94762 ==

== ENCOUNTER 2022-08-28 08:41 | Inpatient (IN) | payer MEDICARE, OTHER, SELFPAY ==
[2022-08-28] VITALS (13 sets, daily range): BP systolic 118–161; BP diastolic 58–93; PULSE 69–93; RESP 16–26; TEMP 36.5–36.7; O2SAT 95–100; BMI 26.4
--- NOTE | 2022-08-28 08:43 | ECG_ITS ---
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 Measurements Intervals [place] Rate: 89 P: 71 CO: 138 QRS: 75 QRSD: 87 T: 63 QT: 329 QTc: 401 Interpretive Statements SINUS RHYTHM POSSIBLE LEFT ATRIAL ENLARGEMENT [-0.1mV P-WAVE IN V1/V2] LOW QRS VOLTAGE IN PRECORDIAL LEADS [QRS DEFLECTION < 1.0 mV IN CHEST LEADS] Compared to ECG 12/17/2021 02:14:37 Low QRS voltage now present Electronically Signed On 08-29-2022 0:04:11 [employer] by Sharee Schmitt M.D. [email or web address]
--- NOTE | 2022-08-28 08:44 | XR_ITS ---
WS: [id number] XR chest 1V portable [id number] REASON FOR EXAM: dyspnea/cough FINDINGS: The heart and mediastinum are within normal limits. Calcified granulomatous disease in both hemithoraces. No acute/subacute pulmonary parenchymal or pleural abnormality. Device artifacts overlying the left lung. Flattening of the hemidiaphragms. The chest is unchanged compared to 04/15/2022. XR/XR chest 1V portable [id number] IMPRESSION: Stable chest with no acute/subacute abnormality.
[2022-08-28] MEDS: ipratropium-albuterol 3 mL Neb 6 ML INHALATION (09:13)
[2022-08-28] MEDS: dexamethasone 10 mg/mL INJ 6 MG IVP (09:13)
[2022-08-28 09:21] LABS: Basophils # 0.1 10^3/uL (0.0-0.1); Basophils % 0.4 %; Eosinophils # 0.1 10^3/uL (0.0-0.8); Eosinophils % 0.4 %; Hematocrit 40.8 % (37.0-47.0); Hemoglobin 12.3 g/dL (11.5-15.3); Lymphocytes # 1.9 10^3/uL (0.8-4.8); Mean Corpuscular HGB Conc 30.1 g/dL (30.0-36.0); Mean Corpuscular Hemoglobin 28.9 pg (28.0-34.0); Mean Corpuscular Volume 95.8 fl (81-99); Mean Platelet Volume 9.6 fL (7.4-10.4); Monocytes # 1.1 10^3/uL (0.2-0.9); Monocytes % 6.6 %; Neutrophils # 12.71 10^3/uL (1.8-7.7); Nucleated Red Blood Cells % 0 %; Platelet Count 399 10^3/cmm (130-400); Red Blood Count 4.26 10^6/uL (4.1-5.3); Red Cell Distribution Width 12.1 % (12.1-15.1); White Blood Count 15.9 10^3/uL (4.0-10.0)
[2022-08-28 09:26] LABS: ABG PH Result 7.19 (7.35-7.45); Arterial Blood Gas Hematocrit 45.6 % (37-47); Base Excess ABG 6.2 mmol/L (-2.0-2.0); Blood Gas Allen Test Pos; Blood Gas Operator Identificat glc; Blood Gas Sample Site Radial, left; Blood Gas Sample Type Arterial; Carboxyhemoglobin 0.9 %THgb (0.4-20.1); HCO3 ABG 38.8 mmol/L (22-26); HGB O2 Sat 98.8 % (95-100); Ionized Calcium Level - ABG 1.2 mmol/L (1.1-1.4); Methemoglobin 0.6 % (0.4-1.5); Oxygen Device NRB; Oxygen Saturation ABG > 100.0; Potassium Level - ABG 4.6 mmol/L (3.5-5.0); Total Hemoglobin 14.9 g/dL (12-16)
--- NOTE | 2022-08-28 09:34 | ED_ITS ---
HPI - SOB/Dyspnea General: Chief Complaint: Shortness of Breath/Dyspnea Stated Complaint: SOB Time Seen by Provider: 08/28/22 08:43 Source: patient Mode of arrival: ambulatory History of Present Illness: HPI Narrative: 71-year-old female presents emergency room with increasing shortness of breath. Normally she uses 2 to 4 L by nasal cannula and she arrives here she is on 12 L by nonrebreather. She states she has had increasing difficult time with breathing and productive cough she was seen 3 days ago at a walk-in clinic was tested for COVID and was negative. Since then she is progressively worsened she was given steroids at that time she has been using nebulizers regularly her last 1 was late last night. She denies chest pain she has had a low-grade fever at home. MD elicited complaint: shortness of breath and cough Pertinent past history: COPD Onset (ago): day(s) (4) Timing: constant Severity: severe Exacerbating factors: exertion, coughing and talking Relieving factors: oxygen, rest and bronchodilators Known history of: COPD Associated symptoms: Reports chest congestion, cough and fever(s); Deny abdominal pain, chest pain, diaphoresis, dizziness, extremity pain, hemoptysis, lightheadedness, myalgias, nausea, orthopnea, palpitations, paresthesias, polydipsia, polyuria, rash, sense of impending doom, syncope or vomiting Treatment prior to arrival: none Review of Systems Const: Reports: fever(s), chills, fatigue and malaise; Denies: diaphoresis ENMT: Denies: throat pain, ear or mastoid pain, nasal discharge or nasal congestion Card: Denies: chest pain, palpitations, lightheadedness, syncope or orthopnea Resp: Reports: dyspnea, productive cough, wheezing and chest congestion; Denies: hemoptysis GI: Denies: abdominal pain, nausea or vomiting : Denies: flank pain, difficulty voiding, dysuria, urinary frequency or urinary urgency Musc: Denies: neck pain, back pain or extremity pain Skin/Breast: Denies: rash or pruritus Neuro: Denies: dizziness Endo: Denies: polyuria or polydipsia PFS ED PFSH: Medical History (Updated 09/09/22 @ 08:54 by Deacon Hooper DO) COPD (chronic obstructive pulmonary disease) COPD exacerbation Diabetes mellitus type 2 in nonobese Hypertension Tobacco dependency Surgical History History of elbow surgery History of hand surgery History of hysterectomy Family History Other Cancer Social History Smoking and tobacco status: former smoker Quit status (tobacco): has quit using tobacco Year quit tobacco: November 2020 Form er quit date comment: 1 ppd X 58 years, started at age 13 Alcohol intake: never Physical Exam Const: ORIENTATION/CONSCIOUSNESS: Yes awake, Yes oriented to person, Yes oriented to place and Yes oriented to time Resp: EFFORT & INSPECTION: Yes tachypneic, Yes respiratory distress and Yes pursed lip breathing AUSCULTATION: rhonchi, wheezes and diminished lung sounds Cardio: COMMON NORMALS: regular rhythm RATE: tachycardic RHYTHM: regular rhythm GI: COMMON NORMALS: Soft to palpation and No hepatosplenomegaly present AUSCULTATION: Yes normoactive bowel sounds PALPATION: Yes Soft to palpation, No Tenderness to palpation present (GI), No Guarding due to palpation present (GI) and Yes No hepatosplenomegaly present Extremity: COMMON NORMALS: normal to inspection, capillary refill normal, no clubbing, cyanosis or edema, no calf tenderness and no pedal edema Neuro: SENSORIUM/ORIENTATION: Yes oriented to person, Yes oriented to place and Yes oriented to time Skin: COMMON NORMALS: no rashes or lesions noted GENERAL SKIN EXAM: no rashes or lesions noted Course Vital Signs: Vital signs: Vital Signs Temperature 98.0 F 08/31/22 12:00 Pulse Rate 114 H 08/31/22 12:00 Respiratory Rate 18 08/31/22 12:00 Blood Pressure 156/76 08/31/22 12:00 Pulse Oximetry 92 08/31/22 12:00 Oxygen Delivery Me thod 08/31/22 12:00 Oxygen Flow Rate 3 08/31/22 11:05 Fraction of Inspir ed Oxygen 35 08/29/22 20:52 MDM - SOB/Dyspnea Medical Decision Making Acute exacerbation of COPD resulting in hypercapnia. Patient unable to clear pneumonia. No sign of PE or cardiac involvement although she does have hypertension is relatively well controlled at this time. Discussed Dr. Curran will admit to the hospital. Labs imaging and EKG reviewed as found in the chart neck EKG does not show any acute changes. Medical Records I reviewed the patient's medical records. Lab Data I reviewed the patient's lab results. 08/28/22 09:13 08/28/22 09:13 Labs/Radiology: Radiology Impressions Chest X-Ray 08/28/22 08:44 IMPRESSION: Stable chest with no acute/subacute abnormality. Laboratory Results WBC 15.9 10^3/uL (4.0-10.0) H 08/28/22 09:13 RBC 4.26 10^6/uL (4.1-5.3) 08/28/22 09:13 Hgb 12.3 g/dL (11.5-15.3) 08/28/22 09:13 Hct 40.8 % (37.0-47.0) 08/28/22 09:13 MCV 95.8 fl (81-99) 08/28/22 09:13 MCH 28.9 pg (28.0-34.0) 08/28/22 09:13 MCHC 30.1 g/dL (30.0-36.0) 08/28/22 09:13 RDW 12.1 % (12.1-15.1) 08/28/22 09:13 Plt Count 399 10^3/cmm (130-400) 08/28/22 09:13 MPV 9.6 fL (7.4-10.4) 08/28/22 09:13 Neut % (Auto) 80.0 % 08/28/22 09:13 Lymph % (Auto) 12.0 % 08/28/22 09:13 Arthur % (Auto) 6.6 % 08/28/22 09:13 Eos % (Auto) 0.4 % 08/28/22 09:13 Baso % (Auto) 0.4 % 08/28/22 09:13 Neut # (Auto) 12.71 10^3/uL (1.8-7.7) H 08/28/22 09:13 Lymph # (Auto) 1.9 10^3/uL (0.8-4.8) 08/28/22 09:13 Arthur # (Auto) 1.1 10^3/uL (0.2-0.9) H 08/28/22 09:13 Eos # (Auto) 0.1 10^3/uL (0.0-0.8) 08/28/22 09:13 Baso # (Auto) 0.1 10^3/uL (0.0-0.1) 08/28/22 09:13 Nucleated RBC % (auto) 0 % 08/28/22 09:13 Nucleated RBCs # 0.0 /100WBC 08/28/22 09:13 D-Dimer 0.44 ug/mIFEU (0-0.59) 08/28/22 09:13 Specimen Type Arterial 08/28/22 10:46 Sample Site Brachial, left 08/28/22 10:46 ABG pH 7.32 (7.35-7.45) L 08/28/22 10:46 ABG pCO2 72.0 mmHg (35-45) H* 08/28/22 10:46 ABG pO2 88.7 mmHg (80.0-100.0) 08/28/22 10:46 ABG HCO3 37.1 mmol/L (22-26) H 08/28/22 10:46 ABG O2 Saturation 96.8 08/28/22 10:46 ABG Base Excess 8.5 mmol/L (-2.0-2.0) H 08/28/22 10:46 Gonzalez Test N/a 08/28/22 10:46 A-a O2 Gradient 10.7 mmHg (5-10) H 08/28/22 10:46 Hematocrit 37.6 % (37-47) 08/28/22 10:46 Hgb O2 Saturation 95.7 % (95-100) 08/28/22 10:46 Carboxyhemoglobin 0.4 %THgb (0.4-20.1) 08/28/22 10:46 Methemoglobin 0.6 % (0.4-1.5) 08/28/22 10:46 Total Hemoglobin 12.3 g/dL (12-16) 08/28/22 10:46 Sodium 141.0 mmol/L (131-143) 08/28/22 10:46 Potassium 4.5 mmol/L (3.5-5.0) 08/28/22 10:46 Glucose 144.0 mg/dL (70-115) H 08/28/22 10:46 Ionized Calcium 1.2 mmol/L (1.1-1.4) 08/28/22 10:46 O2 Delivery Device Bipap 08/28/22 10:46 O2 Liters/Min 8.0 % 08/28/22 09:15 FiO2 36.0 % 08/28/22 10:46 Candy Separator Enrobing ID glc 08/28/22 10:46 Sodium 141 mmol/L (136-145) 08/28/22 09:13 Potassium 4.6 mmol/L (3.5-5.1) 08/28/22 09:13 Chloride 98 mmol/L (98-107) 08/28/22 09:13 Carbon Dioxide 38 mmol/L (22-29) H 08/28/22 09:13 Anion Gap 9.6 (5-19) 08/28/22 09:13 BUN 17 mg/dL (8-23) 08/28/22 09:13 Creatinine 0.7 mg/dL (0.5-0.9) 08/28/22 09:13 GFR Calculation Not Reportable 08/28/22 09:13 Glucose 160 mg/dL (65-115) H 08/28/22 09:13 Calculated Osmolality 297 mOsm/kg (285-295) H 08/28/22 09:13 Calcium 8.6 mg/dL (8.5-10.5) 08/28/22 09:13 Total Bilirubin 0.2 mg/dL (0.15-1.2) 08/28/22 09:13 AST 15 U/L (0-32) 08/28/22 09:13 ALT 16 U/L (0-33) 08/28/22 09:13 Alkaline Phosphatase 84 U/L (35-105) 08/28/22 09:13 Total Protein 7.6 g/dL (6.6-8.7) 08/28/22 09:13 Albumin 4.4 g/dL (3.5-5.2) 08/28/22 09:13 Globulin 3.2 g/dL (1.3-4.6) 08/28/22 09:13 Urine Color Yellow (Yellow) 08/28/22 09:50 Urine Appearance Clear (CLEAR) 08/28/22 09:50 Urine pH 5 (5-7) 08/28/22 09:50 Ur Specific [place] 1.030 (1.005-1.030) 08/28/22 09:50 Urine Protein Neg (Negative) 08/28/22 09:50 Urine Glucose (UA) Norm (Normal) 08/28/22 09:50 Urine Ketones Negative (Negative) 08/28/22 09:50 Urine Blood 2+ (Negative) H 08/28/22 09:50 Urine Nitrate Negative (Negative) 08/28/22 09:50 Urine Bilirubin Neg (Negative) 08/28/22 09:50 Urine Urobilinogen Neg mg/dL (Negative) 08/28/22 09:50 Ur Leukocyte Esterase Negative (Negative) 08/28/22 09:50 Urine RBC 15-25 /hpf (0-2) H 08/28/22 09:50 Urine WBC 5-10 /hpf (0-5) H 08/28/22 09:50 Ur Squamous Epith Cells 0-4 /hpf (0-5) H 08/28/22 09:50 Uric Acid Crystals 0-4 /hpf 08/28/22 09:50 Amorphous Sediment Not Reportable 08/28/22 09:50 Urine Bacteria Trace /hpf (NONE) 08/28/22 09:50 Hyaline Casts Rare /lpf 08/28/22 09:50 Fine Granular Casts Rare /lpf 08/28/22 09:50 Coronavirus 229E (PCR) Not detected (NOT DETECT) 08/28/22 09:14 Human Metapneumovir PCR Not detected (NOT DETECT) 08/28/22 11:36 Influenza Type A Ag negative (Negative) 08/28/22 09:14 Influenza Type B Ag negative (Negative) 08/28/22 09:14 Entero/Rhino (PCR) Detected (NOT DETECT) A 08/28/22 11:36 SARS-CoV-2 (PCR) Not detected (NOT DETECT) 08/28/22 09:14 Discharge Plan Discharge Patient Disposition: Admitted As Inpatient Admit Provider: Heriberto Curran Clinical Impression: Acute on chronic respiratory failure with hypoxia and hypercapnia, Diabetes mellitus type 2 in nonobese, Acute exacerbation of chronic obstructive airways disease Condition: Stable Discharge Diet: Cardiac Discharge Activity: Resume usual activity Coding Level of Care Code ED Regulator Assembler for Chg Sonja
[2022-08-28 09:41] LABS: D Dimer 0.44 ug/mIFEU (0-0.59)
[2022-08-28 09:46] LABS: Alanine Aminotransferase 16 U/L (0-33); Albumin Level 4.4 g/dL (3.5-5.2); Alkaline Phosphatase 84 U/L (35-105); Anion Gap 9.6 (5-19); Aspartate Amino Transferase 15 U/L (0-32); Blood Urea Nitrogen 17 mg/dL (8-23); Calcium 8.6 mg/dL (8.5-10.5); Carbon Dioxide 38 mmol/L (22-29); Chloride 98 mmol/L (98-107); Globulin 3.2 g/dL (1.3-4.6); Glucose 160 mg/dL (65-115); Osmolality Calculated 297 mOsm/kg (285-295); Potassium 4.6 mmol/L (3.5-5.1); Sodium 141 mmol/L (136-145); Total Bilirubin 0.2 mg/dL (0.15-1.2); Total Protein 7.6 g/dL (6.6-8.7)
[2022-08-28 09:59] LABS: Influenza A by IFA negative (Negative); Influenza B by IFA negative (Negative)
[2022-08-28 10:37] LABS: Add Urine Microscopic? YES; Bilirubin Urine Neg (Negative); Blood Urine 2+ (Negative); Glucose Urine UA Norm (Normal); Ketones Urine Negative (Negative); Leukocyte Esterase Urine Negative (Negative); Nitrate Urine Negative (Negative); Protein Urine Neg (Negative); Urine Appearance Clear (CLEAR); Urine Color Yellow (Yellow); Urobilinogen Urine Neg (Negative); pH Urine 5 (5-7)
[2022-08-28 10:38] LABS: Add Urine Culture? Yes; Bacteria Urine TRACE /hpf; Fine Granular Casts Urine RARE /lpf; Hyaline Casts Urine RARE /lpf; RBC Urine 15-25 /hpf (0-2); Squamous Epithelial Cell Urine 0-4 /hpf (0-5); Uric Acid Crystals Urine 0-4 /hpf
[2022-08-28 10:57] LABS: ABG PH Result 7.32 (7.35-7.45); Alveolar-Arterial Oxygen Gradi 10.7 mmHg (5-10); Arterial Blood Gas Hematocrit 37.6 % (37-47); Base Excess ABG 8.5 mmol/L (-2.0-2.0); Blood Gas Operator Identificat glc; Blood Gas Sample Site Brachial, left; Blood Gas Sample Type Arterial; Carboxyhemoglobin 0.4 %THgb (0.4-20.1); HCO3 ABG 37.1 mmol/L (22-26); HGB O2 Sat 95.7 % (95-100); Ionized Calcium Level - ABG 1.2 mmol/L (1.1-1.4); Methemoglobin 0.6 % (0.4-1.5); Oxygen Device BIPAP; Oxygen Saturation ABG 96.8; PO2 ABG 88.7 mmHg (80.0-100.0); Potassium Level - ABG 4.5 mmol/L (3.5-5.0); Total Hemoglobin 12.3 g/dL (12-16)
[2022-08-28 11:30] LABS: Adenovirus Not Detected (NOT DETECT); Chlamydia Pneumoniae Not Detected (NOT DETECT); Coronavirus 229E,HKU1,NL63,OC4 Not Detected (NOT DETECT); Human Metapneumovirus Not Detected (NOT DETECT); Human Rhinovirus/Enterovirus Detected (NOT DETECT); Influenza A Not Detected (NOT DETECT); Influenza A H1 Not Detected (NOT DETECT); Influenza A H1-2009 Not Detected (NOT DETECT); Influenza A H3 Not Detected (NOT DETECT); Influenza B Not Detected (NOT DETECT); Mycoplasma Pneumoniae Not Detected (NOT DETECT); Parainfluenza Virus Type 1 Not Detected (NOT DETECT); Parainfluenza Virus Type 2 Not Detected (NOT DETECT); Parainfluenza Virus Type 3 Not Detected (NOT DETECT); Parainfluenza Virus Type 4 Not Detected (NOT DETECT); Respiratory Syncytial Virus A Not Detected (NOT DETECT); Respiratory Syncytial Virus B Not Detected (NOT DETECT); SARS-COV-2 Not Detected (NOT DETECT)
[2022-08-28 11:36] LABS: Human Metapneumovirus Not Detected (NOT DETECT); Human Rhinovirus/Enterovirus Detected (NOT DETECT); Results from Genmark
--- NOTE | 2022-08-28 12:03 | PM.HP ---
Providers/Chief Complaint Admitting Physician: Heriberto Curran MD Primary Care Provider: Donald Joiner Chief Complaint: SOB History of Present Illness Shirley Avila is a 71 year old female with history of COPD who presented to the ER for shortness of breath. The patient is chronically on 2 to 4 L of oxygen, however due to sudden increase in shortness of breath with wheezing 1 day ago she has been requiring 4 L. She arrived to the ED on 12 L nonrebreather with continuing shortness of breath. She has found it increasingly difficult to ambulate due to increasing shortness of breath that worsens with exertion. Approximately 3 days ago, she was seen as an outpatient for upper respiratory symptoms, including sore throat, rhinorrhea, and a cough. These have since resolved. She tested negative for COVID, however was diagnosed with an upper respiratory infection and was prescribed steroids. Currently, she states that she feels better after receiving BiPAP therapy. She does not have any other complaints at this time, and denies chest pain, fever, abdominal pain, or any other symptoms. Review of Systems General: Reports: 10 or more systems reviewed and unremarkable except in HPI and below Narrative: General: Denies fever, weakness, fatigue Skin: Denies color changes, rash, new lesions HEENT: Denies headache, rhinorrhea, ear pain, visual changes, sore throat Cardiovascular: Denies chest pain, palpitations, peripheral edema, syncope Respiratory: Reports dyspnea, wheezing. Denies orthopnea, cough, pain with breathing GI: Denies abdominal tenderness, distention, N/V/D, constipation : Denies changes in urination Musculoskeletal: Denies myalgias, arthralgias Neuro: Denies paresthesia, numbness Const: Denies: fever(s) or chills Card: Denies: chest pain Resp: Reports: dyspnea and wheezing Medications/Allergies Home Medications Medication Instructions Recorded Confirmed Last Taken Type albuterol sulfate 2.5 mg/3 mL 2.5 mg inhalation Q4H PRN 12/10/21 08/28/22 12/10/21 History (0.083 %) solution for nebulization Shortness Of Breath albuterol sulfate 90 mcg/actuation 2 puff inhalation Q4H PRN 12/10/21 08/28/22 12/10/21 History aerosol inhaler (ProAir HFA) Shortness Of Breath amlodipine 5 mg tablet 5 mg PO QAM 12/10/21 08/28/22 08/27/22 History aspirin 81 mg tablet,delayed 81 mg PO QAM 12/10/21 08/28/22 08/27/22 History release cetirizine 10 mg tablet 10 mg PO DAILY PRN Allergy Symptoms 12/10/21 08/28/22 12/09/21 History metoprolol succinate 100 mg 100 mg PO DAILY 12/10/21 08/28/22 08/27/22 History tablet,extended release 24 hr dextromethorphan-guaifenesin 10 10 ml PO Q4H PRN Cough 12/11/21 08/28/22 12/09/21 History mg-100 mg/5 mL oral liquid metformin 500 mg tablet 500 mg PO BID 12/11/21 08/28/22 08/27/22 History budesonide 0.5 mg/2 mL suspension 0.5 mg (2 mL) inhalation BID copd 12/28/21 08/28/22 08/27/22 Rx for nebulization #60 mL bupropion HCl 150 mg tablet,12 hr 150 mg PO DAILY 12/28/21 08/28/22 08/27/22 History sustained-release famotidine 20 mg tablet 20 mg PO DAILY 12/28/21 08/28/22 08/27/22 History formoterol fumarate 20 mcg/2 mL 2 ml inhalation BID copd #120 mL 12/28/21 08/28/22 Unknown Rx solution for nebulization (Perforomist) revefenacin 175 mcg/3 mL solution 175 mcg (3 mL) inhalation DAILY 12/28/21 08/28/22 Unknown Rx for nebulization (Yupevishali) copd #90 mL ipratropium 0.5 mg-albuterol 3 mg 3 ml inhalation Q4H PRN shortness 04/17/22 08/28/22 Unknown Rx (2.5 mg base)/3 mL nebulization of breath or wheezing #180 mL soln alprazolam 0.25 mg tablet 0.25 - 0.5 mg PO BEDTIME PRN 08/28/22 08/28/22 Unknown History Anxiety doxycycline hyclate 100 mg capsule 100 mg PO BID 08/28/22 08/28/22 08/27/22 History polyethylene glycol 3350 17 gram 17 g PO BID PRN Constipation 08/28/22 08/28/22 Unknown History oral powder packet prednisone 10 mg tablet See Rx Instructions .Route .COMPLEX 08/28/22 08/28/22 08/27/22 History Allergies Allergy/AdvReac Type Severity Reaction Status Date / Time No Known Allergies Allergy Verified 12/28/21 10:39 PFSH Acute PFSH: Medical History (Updated 08/28/22 @ 13:59 by Heriberto Curran MD) COPD (chronic obstructive pulmonary disease) COPD exacerbation Diabetes mellitus type 2 in nonobese Hypertension Tobacco dependency Surgical History History of elbow surgery History of hand surgery History of hysterectomy Family History Other Cancer Social History Smoking and tobacco status: former smoker Quit status (tobacco): has quit using tobacco Year quit tobacco: November 2020 Former quit date comment: 1 ppd X 58 years, started at age 13 Alcohol intake: never Vitals/I&O/Wt Last Vital Signs Temp 97.7 F 08/28/22 09:08 Pulse 69 08/28/22 11:07 Resp 22 H 08/28/22 10:38 BP 138/75 08/28/22 10:38 Pulse Ox 95 08/28/22 11:07 O2 Del Method 08/28/22 10:38 O2 Flow Rate 6 08/28/22 09:10 FiO2 34 08/28/22 11:07 Weight last 48 hrs Weight 63.503 kg Physical Exam Narrative: General: Well-developed, well-nourished white female lying in ER bed appearing in mild respiratory distress. Currently on BiPAP. Skin: No cyanosis or mottling of the skin. No clubbing of her digits. No obvious signs of rash or suspicious lesions. HENT: Head is atraumatic and normocephalic. No active nasal drainage. Ear exam deferred. Throat not visualized due to BiPAP treatment. Eyes: PERRLA. Full EOMs. No scleral icterus or injections. No nystagmus. Chest: Chest is nontender to palpation. No signs of trauma or flail chest. Cardiovascular: Regular rate and rhythm. No JVD. No murmurs rubs or gallops. Respiratory: Patient in mild respiratory distress on BiPAP. Bilateral prolonged expiratory wheeze on auscultation. Speaks in broken sentences. Mild use of accessory muscles. Otherwise no rales, rhonchi, or stridor. No intercostal retractions. GI: Abdomen nontender to palpation. No distention, guarding, or rigidity. Normal bowel sounds. : Deferred Musculoskeletal: No peripheral edema. Pulses equal bilaterally. Capillary refill normal bilaterally. Right lower extremity, overlying the dorsal surface of the great toe medially is a small cyst. It is unknown if this is attached to the tendon. Neuro: Patient is alert and oriented x3. Sensations intact bilaterally. Data 08/28/22 09:13 08/28/22 09:13 Other Labs: ABG initially with a pH of 7.19, PCO2 of 102, PO2 of 282. Repeat ABG demonstrates pH 7.32, PCO2 of 72, PO2 of 89 on BiPAP significantly improved Dimer 0.44 LFTs normal Calcium 8.6 Urinalysis with 15-25 reds, 5-10 whites COVID, influenza negative. Enterovirus/rhinovirus positive Chest x-ray reviewed, I do not see any infiltrate. Changes consistent with COPD are noted EKG demonstrates sinus rhythm, normal axis, baseline waiver, poor R wave progression, nonspecific ST-T wave changes with slight flattening V5 V6. Cannot exclude left atrial enlargement with biphasic P wave in V1 A&P Assessment and plan (1) Acute respiratory failure with hypoxia and hypercapnia: Patient with severe COPD exacerbation with significant hypercapnia and acute encephalopathy on presentation which had cleared by the time I saw the patient. Continue BiPAP, weaning as tolerated See notations under COPD exacerbation (2) Acute exacerbation of chronic obstructive pulmonary disease: Continue IV steroids, Solu-Medrol 60 mg IV every 12 hours DuoNeb every 4 hours Budesonide twice daily Wean oxygen as tolerated Doxycycline 100 mg twice daily BMP, CBC tomorrow (3) Diabetes mellitus type 2 in nonobese: Sliding scale insulin will be initiated (4) Hypertension: Continue home medications Plan Other medical problems as listed in past medical history Full code Lovenox for DVT prophylaxis Attestations Medical Necessity Statement*: Will need greater than 2 midnight stay for evaluation and treatment of acute respiratory failure with hypoxia requiring BiPAP Coding Level of Care Code 61211 High MDM includes risk/complexity, reviewing test results, ordering lab/other test(s) and independently interpretating test(s) (not separately recorded) Diagnoses Acute respiratory failure with hypoxia and hypercapnia J96.01; J96.02 Acute exacerbation of chronic obstructive pulmonary disease J44.1 Diabetes mellitus type 2 in nonobese E11.9 Hypertension I10 Time Spent (min) 51
[2022-08-28] MEDS: enoxaparin 40 mg/0.4 mL Syringe SUBCUT (14:50)
[2022-08-28 17:19] LABS: Glucose Point of Care 277 mg/dL (70-110)
[2022-08-28] MEDS: insulin lispro 100 unit/1 mL SUBCUT ×2 (17:43→22:12)
[2022-08-28] MEDS: doxycycline 100 mg Tablet PO (17:43)
--- NOTE | 2022-08-28 18:44 | PC.NURSE ---
Patient has done well since arriving to the floor. Tolerating 4L NC. Good PO intake. Adequate urine output. Plans to wear bipap at HS. Currently resting in bed with visitors at bedside.
[2022-08-28] MEDS: ipratropium-albuterol 3 mL Neb INHALATION ×2 (21:44→22:00)
[2022-08-28] MEDS: budesonide 0.5 mg/2 mL Neb INHALATION (21:45)
[2022-08-28 22:04] LABS: Glucose Point of Care 193 mg/dL (70-110)
[2022-08-29] VITALS (15 sets, daily range): BP systolic 125–173; BP diastolic 63–74; PULSE 70–106; RESP 16–22; TEMP 36.5–36.7; O2SAT 93–98
[2022-08-29] MEDS: ipratropium-albuterol 3 mL Neb INHALATION ×8 (01:15→23:01)
[2022-08-29] MEDS: aspirin 81 mg EC Tablet PO (05:32)
[2022-08-29] MEDS: amlodipine 5 mg Tablet PO (05:32)
[2022-08-29 05:56] LABS: Basophils % 0.1 %; Hematocrit 37.3 % (37.0-47.0); Hemoglobin 11.6 g/dL (11.5-15.3); Lymphocytes % 8.8 %; Mean Corpuscular HGB Conc 31.1 g/dL (30.0-36.0); Mean Corpuscular Hemoglobin 29.2 pg (28.0-34.0); Mean Platelet Volume 10.1 fL (7.4-10.4); Monocytes # 0.5 10^3/uL (0.2-0.9); Monocytes % 3.8 %; Neutrophils # 10.05 10^3/uL (1.8-7.7); Nucleated Red Blood Cells % 0 %; Platelet Count 288 10^3/cmm (130-400); Red Blood Count 3.97 10^6/uL (4.1-5.3); Red Cell Distribution Width 11.8 % (12.1-15.1); White Blood Count 11.7 10^3/uL (4.0-10.0)
[2022-08-29 06:18] LABS: Blood Urea Nitrogen 18 mg/dL (8-23); Calcium 8.8 mg/dL (8.5-10.5); Carbon Dioxide 32 mmol/L (22-29); Chloride 96 mmol/L (98-107); Glucose 185 mg/dL (65-115); Magnesium 1.8 mg/dL (1.7-2.3); Osmolality Calculated 291 mOsm/kg (285-295); Sodium 137 mmol/L (136-145)
[2022-08-29 06:24] LABS: Anion Gap 13.4 (5-19); Potassium 4.4 mmol/L (3.5-5.1)
[2022-08-29 06:29] LABS: Glucose Point of Care 200 mg/dL (70-110)
[2022-08-29] MEDS: budesonide 0.5 mg/2 mL Neb INHALATION ×2 (08:07→20:49)
[2022-08-29] MEDS: buPROPion SR (12 HR) 150 mg Tablet PO (08:09)
[2022-08-29] MEDS: insulin lispro 100 unit/1 mL SUBCUT ×4 (08:10→21:34)
[2022-08-29] MEDS: famotidine 20 mg Tablet PO (08:10)
[2022-08-29] MEDS: doxycycline 100 mg Tablet PO ×2 (08:10→18:20)
--- NOTE | 2022-08-29 09:54 | PM.PN ---
Subjective Subjective: Shirley reports she is breathing better. She denies any confusion this morning. No chest pain. Still coughing quite a bit and wheezing. Medications: Reviewed: Yes Vitals/I&O/Wt Last Vital Signs Temp 98.0 F 08/29/22 04:00 Pulse 80 08/29/22 08:19 Resp 18 08/29/22 08:12 BP 131/70 08/29/22 04:00 Pulse Ox 94 08/29/22 08:12 O2 Del Method 08/29/22 08:12 O2 Flow Rate 3.5 08/29/22 08:12 FiO2 34 08/28/22 13:09 08/28/22 08/29/22 08/29/22 22:59 06:59 14:59 Intake Total 840 / 840 350 / 1190 Output Total 250 / 500 Balance 590 / 340 350 / 690 Weight last 48 hrs Weight 63.503 kg Physical Exam Narrative: General exam no distress. Off BiPAP, on 3-1/2 L of oxygen Neck is supple Cardiovascular regular rate and rhythm without murmur Lungs bilateral expiratory wheezes. Improved aeration from yesterday. Abdomen soft nontender Extremities no cyanosis clubbing or edema Data 08/29/22 05:32 08/29/22 05:32 A&P Assessment and plan (1) Acute respiratory failure with hypoxia and hypercapnia: Patient with severe COPD exacerbation with significant hypercapnia and acute encephalopathy on presentation which had cleared by the time I saw the patient. She has now been able to wean off BiPAP Currently on 3-1/2 L of oxygen, wean as tolerated (2) Acute exacerbation of chronic obstructive pulmonary disease: Changed to prednisone 40 mg daily Continue DuoNeb every 4 hours Continue budesonide twice daily Wean oxygen as tolerated Doxycycline 100 mg twice daily BMP, tomorrow Possible discharge tomorrow if continues to improve (3) Diabetes mellitus type 2 in nonobese: Sliding scale insulin will be initiated (4) Hypertension: Continue home medications Plan Other medical problems as listed in past medical history Full code Lovenox for DVT prophylaxis Attestations Medical Necessity Statement*: Needs continued hospitalization for frequent breathing treatments, weaning oxygen, secondary to severe COPD exacerbation Coding Level of Care Code 07956 Moderate MDM includes risk/complexity, reviewing test results and ordering lab/other test(s) Diagnoses Acute respiratory failure with hypoxia and hypercapnia J96.01; J96.02 Acute exacerbation of chronic obstructive pulmonary disease J44.1 Diabetes mellitus type 2 in nonobese E11.9 Hypertension I10 Time Spent (min) 25
[2022-08-29 11:28] LABS: Glucose Point of Care 282 mg/dL (70-110)
--- NOTE | 2022-08-29 12:08 | PC.CHAP ---
Pastoral Care Encounter/Spiritual Assessment Type of Contact [] Declined gang plank workman visit [] Patient/Family/Request visit [] Outpatient visit [] Follow-up visit [] Physician referral [] Code/Alert [] Routine visit [] Staff referral [] Actively dying [] Patient sleeping [] Family support [] [] Out of room [] Palliative care [] [] Receiving care in room [] Pre-surgical visit [] Trauma [] Long length of stay [] ICU visit [x] Other: Isolation Relational/Emotional Strength [] Patient feels connected with others/family/visitors/staff [] Distress [] Loneliness/isolation [] Abandonment Spirituality of Patient [] Person of Rosangela [] Attends Hinduism of their [place]angela [] Believes in Prayer [] Reads Bible or Alevism materials [] There are Spiritual issues to be addressed Lumber Buyer Interventions [] Prayer [] Active listening [] Non-anxious presence [] Spiritual/emotional support [] Crisis/trauma care [] Spiritual counseling [] Bereavement support [] Provided bereavement packet [] Provided Bible/devotional materials [] Provided toy/stuffed animal, coloring book to patient or family member [] Provided Communion [] Anointing/[place] [] Salvation [] Completed spiritual assessment [] Other: Impact on Illness or Injury [] Angry [] Fearful [] Anxious [] Often cries [] Exhaustion [] Unable to work [] Unable to attend sabianism [] Unable to walk/stand [] Unable to read [] Unable to drive [] Unable to eat/drink [] Unable to sleep [] Unable to be with family [] Patient intubated [] Other: Summary Isolation Time spent with patient 5 mns
[2022-08-29] MEDS: metoprolol succinate ER (24 HR) 100 mg Tablet PO (13:05)
[2022-08-29] MEDS: acetaminophen 325 mg Tablet 650 MG PO (13:07)
[2022-08-29] MEDS: enoxaparin 40 mg/0.4 mL Syringe SUBCUT (15:14)
[2022-08-29 17:22] LABS: Glucose Point of Care 235 mg/dL (70-110)
[2022-08-29 21:19] LABS: Glucose Point of Care 153 mg/dL (70-110)
[2022-08-30] VITALS (17 sets, daily range): BP systolic 139–157; BP diastolic 75–89; PULSE 71–90; RESP 16–23; TEMP 36.4–36.9; O2SAT 93–98
[2022-08-30] MEDS: ipratropium-albuterol 3 mL Neb INHALATION ×5 (03:09→19:52)
[2022-08-30] MEDS: aspirin 81 mg EC Tablet PO (05:09)
[2022-08-30] MEDS: amlodipine 5 mg Tablet PO (05:09)
[2022-08-30 06:34] LABS: Glucose Point of Care 127 mg/dL (70-110)
[2022-08-30 07:16] LABS: Anion Gap 8.5 (5-19); Blood Urea Nitrogen 20 mg/dL (8-23); Calcium 9.5 mg/dL (8.5-10.5); Carbon Dioxide 37 mmol/L (22-29); Chloride 96 mmol/L (98-107); Glucose 125 mg/dL (65-115); Osmolality Calculated 290 mOsm/kg (285-295); Potassium 3.5 mmol/L (3.5-5.1); Sodium 138 mmol/L (136-145)
[2022-08-30] MEDS: budesonide 0.5 mg/2 mL Neb INHALATION ×2 (08:14→19:52)
[2022-08-30] MEDS: metoprolol succinate ER (24 HR) 100 mg Tablet PO (08:43)
[2022-08-30] MEDS: doxycycline 100 mg Tablet PO ×2 (08:43→17:20)
[2022-08-30] MEDS: famotidine 20 mg Tablet PO (08:43)
[2022-08-30] MEDS: predniSONE 20 mg Tablet 40 MG PO (08:43)
[2022-08-30] MEDS: buPROPion SR (12 HR) 150 mg Tablet PO (08:44)
--- NOTE | 2022-08-30 08:49 | PM.PN ---
Subjective Subjective: Shirley reports she is not yet back to baseline. She is still wheezing quite a bit. She is still significantly short of breath when she moves about the room. Medications: Reviewed: Yes Vitals/I&O/Wt Last Vital Signs Temp 98.2 F 08/30/22 08:00 Pulse 83 08/30/22 08:28 Resp 18 08/30/22 08:14 BP 146/80 08/30/22 08:00 Pulse Ox 97 08/30/22 08:14 O2 Del Method 08/30/22 08:14 O2 Flow Rate 3 08/30/22 08:14 FiO2 35 08/29/22 20:52 08/29/22 08/30/22 08/30/22 22:59 06:59 14:59 Intake Total 900 / 1500 900 / 2400 Balance 900 / 1500 900 / 2400 Physical Exam Narrative: General exam no distress. On 3 L of oxygen Neck is supple Cardiovascular regular rate and rhythm without murmur Lungs bilateral expiratory wheezes. Unchanged from yesterday Abdomen soft nontender Extremities no cyanosis clubbing or edema Data 08/29/22 05:32 08/30/22 06:25 Micro: Microbiology 08/28/22 09:50 Urine Culture - Preliminary Urine,Clean Catch Gram Negative Rods A&P Assessment and plan (1) Acute respiratory failure with hypoxia and hypercapnia: Patient with severe COPD exacerbation with significant hypercapnia and acute encephalopathy on presentation which had cleared by the time I saw the patient. She has now off BiPAP and is weaned down to 3 L. (2) Acute exacerbation of chronic obstructive pulmonary disease: Continue prednisone 40 mg daily Continue DuoNeb every 4 hours Continue budesonide twice daily Wean oxygen as tolerated Continue doxycycline 100 mg twice daily Not appropriate for discharge today. Still significant wheezing. Needs further nebs, and close monitoring Check CBC and BMP tomorrow morning (3) Diabetes mellitus type 2 in nonobese: Sliding scale insulin will be initiated (4) Hypertension: Continue home medications Plan Urine obtained on admission is growing about 5000 colonies gram-negative domenica, which was asymptomatic. Not treating at this time. Other medical problems as listed in past medical history Full code Lovenox for DVT prophylaxis Attestations Medical Necessity Statement*: Needs continued hospitalization for close monitoring, frequent nebs secondary to severe COPD exacerbation. Coding Level of Care Code Acute Code for g Fwd Diagnoses Acute respiratory failure with hypoxia and hypercapnia J96.01; J96.02 Acute exacerbation of chronic obstructive pulmonary disease J44.1 Diabetes mellitus type 2 in nonobese E11.9 Hypertension I10
[2022-08-30 10:55] LABS: Glucose Point of Care 173 mg/dL (70-110)
[2022-08-30] MEDS: insulin lispro 100 unit/1 mL SUBCUT ×2 (11:54→17:19)
[2022-08-30] MEDS: enoxaparin 40 mg/0.4 mL Syringe SUBCUT (14:16)
[2022-08-30 17:24] LABS: Glucose Point of Care 305 mg/dL (70-110)
[2022-08-30 20:59] LABS: Glucose Point of Care 111 mg/dL (70-110)
[2022-08-31 03:22] VITALS: BP 146/73; PULSE 63; RESP 19; TEMP 36.5; O2SAT 95
[2022-08-31] MEDS: ipratropium-albuterol 3 mL Neb INHALATION ×3 (04:53→11:02)
[2022-08-31 04:55] VITALS: PULSE 75; RESP 16; O2SAT 98
[2022-08-31 05:16] LABS: Basophils % 0.1 %; Eosinophils % 0.3 %; Hematocrit 37.4 % (37.0-47.0); Hemoglobin 11.7 g/dL (11.5-15.3); Lymphocytes # 3.1 10^3/uL (0.8-4.8); Lymphocytes % 23.1 %; Mean Corpuscular HGB Conc 31.3 g/dL (30.0-36.0); Mean Corpuscular Hemoglobin 28.7 pg (28.0-34.0); Mean Corpuscular Volume 91.9 fl (81-99); Mean Platelet Volume 9.9 fL (7.4-10.4); Monocytes # 1.4 10^3/uL (0.2-0.9); Monocytes % 10.2 %; Neutrophils % 65.8 %; Nucleated Red Blood Cells % 0 %; Platelet Count 377 10^3/cmm (130-400); Red Blood Count 4.07 10^6/uL (4.1-5.3); Red Cell Distribution Width 11.9 % (12.1-15.1); White Blood Count 13.4 10^3/uL (4.0-10.0)
[2022-08-31] MEDS: aspirin 81 mg EC Tablet PO (05:19)
[2022-08-31] MEDS: amlodipine 5 mg Tablet PO (05:19)
[2022-08-31 05:43] LABS: Anion Gap 9.7 (5-19); Blood Urea Nitrogen 17 mg/dL (8-23); Calcium 8.8 mg/dL (8.5-10.5); Carbon Dioxide 38 mmol/L (22-29); Chloride 97 mmol/L (98-107); Glucose 102 mg/dL (65-115); Osmolality Calculated 294 mOsm/kg (285-295); Potassium 3.7 mmol/L (3.5-5.1); Sodium 141 mmol/L (136-145)
[2022-08-31 06:29] LABS: Glucose Point of Care 100 mg/dL (70-110)
[2022-08-31] MEDS: budesonide 0.5 mg/2 mL Neb INHALATION (07:22)
[2022-08-31 07:25] VITALS: PULSE 70; RESP 16; O2SAT 97
[2022-08-31 08:00] VITALS: BP 147/69; PULSE 66; RESP 17; TEMP 36.7; O2SAT 97
[2022-08-31] MEDS: doxycycline 100 mg Tablet PO (10:41)
[2022-08-31] MEDS: predniSONE 20 mg Tablet 40 MG PO (10:41)
[2022-08-31] MEDS: metoprolol succinate ER (24 HR) 100 mg Tablet PO (10:42)
[2022-08-31] MEDS: buPROPion SR (12 HR) 150 mg Tablet PO (10:42)
[2022-08-31] MEDS: famotidine 20 mg Tablet PO (10:42)
[2022-08-31 11:05] VITALS: PULSE 79; RESP 16; O2SAT 94
[2022-08-31 11:35] LABS: Glucose Point of Care 142 mg/dL (70-110)
--- NOTE | 2022-08-31 11:50 | PM.DCS ---
Discharge Providers Date of Admission: 08/28/22 14:05 Date of Discharge: August 31, 2022 Attending Provider at Admission: Heriberto Curran MD Attending Provider at Discharge: William Ojeda MD Primary Care Provider: Donald Joiner Diagnoses at Discharge Discharge Diagnosis (1) Acute respiratory failure with hypoxia and hypercapnia: Status: Acute (2) Acute exacerbation of chronic obstructive pulmonary disease: Status: Acute (3) Diabetes mellitus type 2 in nonobese: Status: Acute (4) Hypertension: Status: Acute Reason for Visit Reason for Visit: SOB Hospital Course Hospital Course Shirley Avila is a 71 year old female with history of COPD who presented to the ER for shortness of breath.? The patient is chronically on 2 to 4 L of oxygen, however due to sudden increase in shortness of breath with wheezing 1 day ago she has been requiring 4 L.? She arrived to the ED on 12 L nonrebreather with continuing shortness of breath.? She has found it increasingly difficult to ambulate due to increasing shortness of breath that worsens with exertion.? Approximately 3 days ago, she was seen as an outpatient for upper respiratory symptoms, including sore throat, rhinorrhea, and a cough.? These have since resolved.? She tested negative for COVID, however was diagnosed with an upper respiratory infection and was prescribed steroids.? Currently, she states that she feels better after receiving BiPAP therapy.? She does not have any other complaints at this time, and denies chest pain, fever, abdominal pain, or any other symptoms. Patient was admitted to [facility] for COPD exacerbation, received steroid therapy, nebulizer treatment, BiPAP therapy, clinically monitored, overall clinically improved, discharged with her home oxygen, steroid burst, with a close follow-up with her primary care and pulmonary as outpatient She had a UTI during hospitalization discharged on cefdinir She had complaints of a chronic rash, during hospitalization, will refer her to dermatology for skin biopsy discharged on steroids, and hydroxyzine Physical Exam Const: COMMON NORMALS: no acute distress and patient oriented x3 Resp: COMMON NORMALS: normal respiratory effort, No retractions, No use of accessory muscles and clear to auscultation bilaterally AUSCULTATION: clear to auscultation bilaterally Cardio: COMMON NORMALS: regular rate, regular rhythm, S1 normal heart sound present and S2 normal heart sound present RATE: regular rate RHYTHM: regular rhythm HEART SOUNDS: S1 normal heart sound present and S2 normal heart sound present GI: COMMON NORMALS: Normal to inspection, nondistended, normoactive bowel sounds present, Soft to palpation, non-tender, No hepatosplenomegaly present, no masses and no bruits PALPATION: Yes Soft to palpation and Yes No hepatosplenomegaly present Extremity: COMMON NORMALS: no pedal edema Neuro: COMMON NORMALS: patient oriented x3 Psych: COMMON NORMALS: mental status grossly normal Skin: NARRATIVE SKIN EXAM: Rash, macular, irregular borders, round,, largest measuring 1 x 1 cm smallest measuring 5 x 5 mm, on bilateral legs, chest, back Discharge Data Studies Completed and Pending Completed Studies During Hospitalization Category Date Time Status XR chest 1V portable [id number] Stat Exams 08/28/22 08:44 Completed Pending at discharge Category Date Time Status Urine Culture Stat Lab 08/28/22 09:50 Results Radiology Impressions Chest X-Ray 08/28/22 08:44 IMPRESSION: Stable chest with no acute/subacute abnormality. Laboratory Results WBC 13.4 10^3/uL (4.0-10.0) H 08/31/22 04:24 RBC 4.07 10^6/uL (4.1-5.3) L 08/31/22 04:24 Hgb 11.7 g/dL (11.5-15.3) 08/31/22 04:24 Hct 37.4 % (37.0-47.0) 08/31/22 04:24 MCV 91.9 fl (81-99) 08/31/22 04:24 MCH 28.7 pg (28.0-34.0) 08/31/22 04:24 MCHC 31.3 g/dL (30.0-36.0) 08/31/22 04:24 RDW 11.9 % (12.1-15.1) L 08/31/22 04:24 Plt Count 377 10^3/cmm (130-400) 08/31/22 04:24 MPV 9.9 fL (7.4-10.4) 08/31/22 04:24 Neut % (Auto) 65.8 % 08/31/22 04:24 Lymph % (Auto) 23.1 % 08/31/22 04:24 Bartholomew % (Auto) 10.2 % 08/31/22 04:24 Eos % (Auto) 0.3 % 08/31/22 04:24 Baso % (Auto) 0.1 % 08/31/22 04:24 Neut # (Auto) 8.80 10^3/uL (1.8-7.7) H 08/31/22 04:24 Lymph # (Auto) 3.1 10^3/uL (0.8-4.8) 08/31/22 04:24 Bartholomew # (Auto) 1.4 10^3/uL (0.2-0.9) H 08/31/22 04:24 Eos # (Auto) 0.0 10^3/uL (0.0-0.8) 08/31/22 04:24 Baso # (Auto) 0.0 10^3/uL (0.0-0.1) 08/31/22 04:24 Nucleated RBC % (auto) 0 % 08/31/22 04:24 Nucleated RBCs # 0.0 /100WBC 08/31/22 04:24 D-Dimer 0.44 ug/mIFEU (0-0.59) 08/28/22 09:13 Specimen Type Arterial 08/28/22 10:46 Sample Site Brachial, left 08/28/22 10:46 ABG pH 7.32 (7.35-7.45) L 08/28/22 10:46 ABG pCO2 72.0 mmHg (35-45) H* 08/28/22 10:46 ABG pO2 88.7 mmHg (80.0-100.0) 08/28/22 10:46 ABG HCO3 37.1 mmol/L (22-26) H 08/28/22 10:46 ABG O2 Saturation 96.8 08/28/22 10:46 ABG Base Excess 8.5 mmol/L (-2.0-2.0) H 08/28/22 10:46 Gonzalez Test N/a 08/28/22 10:46 A-a O2 Gradient 10.7 mmHg (5-10) H 08/28/22 10:46 Hematocrit 37.6 % (37-47) 08/28/22 10:46 Hgb O2 Saturation 95.7 % (95-100) 08/28/22 10:46 Carboxyhemoglobin 0.4 %THgb (0.4-20.1) 08/28/22 10:46 Methemoglobin 0.6 % (0.4-1.5) 08/28/22 10:46 Total Hemoglobin 12.3 g/dL (12-16) 08/28/22 10:46 Sodium 141.0 mmol/L (131-143) 08/28/22 10:46 Potassium 4.5 mmol/L (3.5-5.0) 08/28/22 10:46 Glucose 144.0 mg/dL (70-115) H 08/28/22 10:46 Ionized Calcium 1.2 mmol/L (1.1-1.4) 08/28/22 10:46 O2 Delivery Device Bipap 08/28/22 10:46 O2 Liters/Min 8.0 % 08/28/22 09:15 FiO2 36.0 % 08/28/22 10:46 Structural Design Engineer ID [email or web address] 08/28/22 10:46 Sodium 141 mmol/L (136-145) 08/31/22 04:24 Potassium 3.7 mmol/L (3.5-5.1) 08/31/22 04:24 Chloride 97 mmol/L (98-107) L 08/31/22 04:24 Carbon Dioxide 38 mmol/L (22-29) H 08/31/22 04:24 Anion Gap 9.7 (5-19) 08/31/22 04:24 BUN 17 mg/dL (8-23) 08/31/22 04:24 Creatinine 0.7 mg/dL (0.5-0.9) 08/31/22 04:24 GFR Calculation Not Reportable 08/31/22 04:24 Glucose 102 mg/dL (65-115) 08/31/22 04:24 POC Glucose 142 mg/dL (70-110) H 08/31/22 10:49 Calculated Osmolality 294 mOsm/kg (285-295) 08/31/22 04:24 Calcium 8.8 mg/dL (8.5-10.5) 08/31/22 04:24 Magnesium 1.8 mg/dL (1.7-2.3) 08/29/22 05:32 Total Bilirubin 0.2 mg/dL (0.15-1.2) 08/28/22 09:13 AST 15 U/L (0-32) 08/28/22 09:13 ALT 16 U/L (0-33) 08/28/22 09:13 Alkaline Phosphatase 84 U/L (35-105) 08/28/22 09:13 Total Protein 7.6 g/dL (6.6-8.7) 08/28/22 09:13 Albumin 4.4 g/dL (3.5-5.2) 08/28/22 09:13 Globulin 3.2 g/dL (1.3-4.6) 08/28/22 09:13 Urine Color Yellow (Yellow) 08/28/22 09:50 Urine Appearance Clear (CLEAR) 08/28/22 09:50 Urine pH 5 (5-7) 08/28/22 09:50 Ur Specific Chandler 1.030 (1.005-1.030) 08/28/22 09:50 Urine Protein Neg (Negative) 08/28/22 09:50 Urine Glucose (UA) Norm (Normal) 08/28/22 09:50 Urine Ketones Negative (Negative) 08/28/22 09:50 Urine Blood 2+ (Negative) H 08/28/22 09:50 Urine Nitrate Negative (Negative) 08/28/22 09:50 Urine Bilirubin Neg (Negative) 08/28/22 09:50 Urine Urobilinogen Neg mg/dL (Negative) 08/28/22 09:50 Ur Leukocyte Esterase Negative (Negative) 08/28/22 09:50 Urine RBC 15-25 /hpf (0-2) H 08/28/22 09:50 Urine WBC 5-10 /hpf (0-5) H 08/28/22 09:50 Ur Squamous Epith Cells 0-4 /hpf (0-5) H 08/28/22 09:50 Uric Acid Crystals 0-4 /hpf 08/28/22 09:50 Amorphous Sediment Not Reportable 08/28/22 09:50 Urine Bacteria Trace /hpf (NONE) 08/28/22 09:50 Hyaline Casts Rare /lpf 08/28/22 09:50 Fine Granular Casts Rare /lpf 08/28/22 09:50 Coronavirus 229E (PCR) Not detected (NOT DETECT) 08/28/22 09:14 Human Metapneumovir PCR Not detected (NOT DETECT) 08/28/22 11:36 Influenza Type A Ag negative (Negative) 08/28/22 09:14 Influenza Type B Ag negative (Negative) 08/28/22 09:14 Entero/Rhino (PCR) Detected (NOT DETECT) A 08/28/22 11:36 SARS-CoV-2 (PCR) Not detected (NOT DETECT) 08/28/22 09:14 Vitals Last Vital Signs Temp 98.1 F 08/31/22 08:00 Pulse 79 08/31/22 11:05 Resp 16 08/31/22 11:05 BP 147/69 08/31/22 08:00 Pulse Ox 94 08/31/22 11:05 O2 Del Method 08/31/22 11:05 O2 Flow Rate 3 08/31/22 11:05 FiO2 35 08/29/22 20:52 Discharge Plan Discharge Patient Disposition: Home Condition: Stable Prescriptions: New cefdinir 300 mg capsule 300 mg PO BID 5 Days Qty: 10 0RF hydroxyzine HCl 25 mg tablet 25 mg PO Q24H PRN (Reason: itching and for sleep) 5 Days Qty: 5 0RF prednisone 20 mg tablet 20 mg PO BID 5 Days Qty: 10 0RF Continued famotidine 20 mg tablet 20 mg PO DAILY bupropion HCl 150 mg tablet sustained-release 12 hr 150 mg PO DAILY formoterol fumarate [Perforomist] 20 mcg/2 mL solution for nebulization 2 ml inhalation BID Qty: 120 6RF Yupelri 175 mcg/3 mL solution for nebulization 175 mcg inhalation DAILY Qty: 90 6RF budesonide 0.5 mg/2 mL suspension for nebulization 0.5 mg inhalation BID Qty: 60 6RF albuterol sulfate 2.5 mg /3 mL (0.083 %) Solution For Nebulization 2.5 mg INHALATION Q4H PRN (Reason: Shortness Of Breath) cetirizine 10 mg Tablet 10 mg PO DAILY PRN (Reason: Allergy Symptoms) metoprolol succinate 100 mg Tablet Extended Release 24 Hr 100 mg PO DAILY amlodipine 5 mg Tablet 5 mg PO QAM aspirin 81 mg Tablet,Delayed Release (Dr/Ec) 81 mg PO QAM albuterol sulfate [ProAir HFA] 90 mcg/actuation Hfa Aerosol Inhaler 2 puff INHALATION Q4H PRN (Reason: Shortness Of Breath) metformin 500 mg Tablet 500 mg PO BID dextromethorphan-guaifenesin 10-100 mg/5 mL Liquid 10 ml PO Q4H PRN (Reason: Cough) ipratropium-albuterol 0.5 mg-3 mg(2.5 mg base)/3 mL solution for nebulization 3 ml inhalation Q4H PRN (Reason: shortness of breath or wheezing) Qty: 180 0RF alprazolam 0.25 mg Tablet 0.25 - 0.5 mg PO BEDTIME PRN (Reason: Anxiety) polyethylene glycol 3350 17 gram powder in packet 17 g PO BID PRN (Reason: Constipation) Discontinued prednisone 10 mg tablet See Rx Instructions .ROUTE .COMPLEX Rx Instructions: 40mg by mouth x 3 days, then 30 mg by mouth x 3 days, then 20mg by mouth x 3 days, then 10 mg by mouth x 3 days doxycycline hyclate 100 mg Capsule 100 mg PO BID Discharge Orders: Discharge Order (Routine); Ordered 08/31/22 Ordered By: William Ojeda Referrals: Aldo Amato MD [Physician] - 2 weeks Donald Joiner [Primary Care Provider] - 1-3 days Aleta Summers DO [Physician] - 1 month Discharge Diet: Cardiac Discharge Activity: Resume usual activity Patient Instructions: Opioid Safety Activity Restrictions/Additional Instructions: - Please monitor for shortness of breath and wheezing and fevers -If any worsening shortness of breath go to the emergency room -Please follow-up with primary care in 1 week -Follow-up with pulmonary in 1 week -Take antibiotics for UTI -Take steroids for COPD -Use hydroxyzine sparingly for itching, and for sleep -For rash follow-up with dermatology Discharge Attestations Time Spent in Discharge Care*: greater than 30 min Quality Metrics Clinical Quality Measures [ No reported AMI, CVA or VTE this stay] Coding Level of Care Code 40083 Diagnoses Acute respiratory failure with hypoxia and hypercapnia J96.01; J96.02 Acute exacerbation of chronic obstructive pulmonary disease J44.1 Diabetes mellitus type 2 in nonobese E11.9 Hypertension I10
[2022-08-31 12:00] VITALS: BP 156/76; PULSE 114; RESP 18; TEMP 36.7; O2SAT 92
== END 2022-08-31 13:34 | disposition home or self-care (01) | DRG 190 ==
LOC: ER 09:38 → MEDSURG 16:35
PROVIDERS: Admitting Provider Internal Medicine; Emergency Provider Family Medicine; PCP Family Medicine; Visit Provider Family Medicine
DX: J44.1 Chronic obstructive pulmonary disease with (acute) exacerbation (principal); G93.41 Metabolic encephalopathy; J96.01 Acute respiratory failure with hypoxia; N39.0 Urinary tract infection, site not specified; Z99.81 Dependence on supplemental oxygen; R21 Rash and other nonspecific skin eruption; Z79.51 Long term (current) use of inhaled steroids; Z79.82 Long term (current) use of aspirin; Z79.84 Long term (current) use of oral hypoglycemic drugs; I10 Essential (primary) hypertension; E11.9 Type 2 diabetes mellitus without complications; Z87.891 Personal history of nicotine dependence; B97.10 Unspecified enterovirus as the cause of diseases classified elsewhere
CPT/HCPCS: 36415; 36416; 36600; 71045; 80048; 80051; 80053; 81001; 82330; 82805; 82962; 83735; 85025; 85378; 87077; 87086; 87186; 87635; 87801; 87804; 93005; 94640; 94660; 96372; 96374; 99285; J1100; J1650; J1815; J2930; J7512; J7626

== ENCOUNTER 2022-09-21 21:00 | Emergency (ER) | payer MEDICARE, OTHER, SELFPAY ==
[2022-09-21 21:01] VITALS: BP 138/60; PULSE 81; RESP 18; TEMP 37.2; O2SAT 96; BMI 30.2
--- NOTE | 2022-09-21 21:08 | CTR_ITS ---
PROCEDURE INFORMATION: Exam: CTA Chest With Contrast Exam date and time: 09/21/2022 9:57 PM Age: 71 years old Clinical indication: Cough and shortness of breath; Additional info: Chest pain recent hospitalization TECHNIQUE: Imaging protocol: Computed tomographic angiography of the chest with contrast. 3D rendering (Not supervised by radiologist): MIP and/or 3D reconstructed images were created by the technologist. Radiation optimization: All CT scans at this facility use at least one of these dose optimization techniques: automated exposure control; mA and/or kV adjustment per patient size (includes targeted exams where dose is matched to clinical indication); or iterative reconstruction. Contrast material: OMNI 350; Contrast volume: 100 ml; Contrast route: INTRAVENOUS (IV); REPORTING DATA: Count of CT and Cardiac NM exams in prior 12 months: This patient has received [address] and 0 known cardiac nuclear medicine studies in the 12 months prior to the current study. COMPARISON: CT angio chest PE protcl [id number] 09/17/2018 5:00 PM RADIATION DOSE METRICS: Total DLP (mGy-cm): 526.84 FINDINGS: Pulmonary arteries: There is no evidence of filling defects within the pulmonary arterial circulation to suggest pulmonary embolism. Aorta: There is no thoracic aortic aneurysm or dissection. Lungs: There is moderate centrilobular emphysema especially upper lobes. There is mild bronchial wall thickening in the lower lobes more on the right than on the left which may represent some bronchitis. There is some mild peribronchial infiltrate right lung base and some mild ground-glass and tree-in-bud type opacities in the periphery of the middle lobe and posterior segment right upper lobe which may represent some mild infectious bronchiolitis. On this examination there is inward bulging of the posterior wall of the trachea and also mild flattening of the main bronchi on both sides. This is a change from the appearance on the previous examination and is suggestive of tracheal bronchomalacia. Correlation with clinical findings is suggested. Further evaluation with dynamic CT scan may be helpful to confirm or disprove presence of tracheobronchomalacia. Pleural spaces: Unremarkable. No pneumothorax. No pleural effusion. Heart: Unremarkable. No cardiomegaly. No pericardial effusion. Lymph nodes: There is no evidence of lymphadenopathy. Gallbladder and bile ducts: A calcified gallstone is present. Bones/joints: Unremarkable. No acute fracture. Soft tissues: Unremarkable. CT/CT angio chest PE protcl [id number] IMPRESSION: 1. No evidence of pulmonary embolism. 2. Mild right-sided bronchitis or bronchiolitis 3. Findings suggesting tracheobronchomalacia. COMMENTS: In the absence of a history or active diagnosis of lung cancer, it is recommended that this patient with emphysema be evaluated for enrollment in a low dose CT lung cancer screening program.
--- NOTE | 2022-09-21 21:08 | XRR_ITS ---
PROCEDURE INFORMATION: Exam: XR Chest Exam date and time: 09/21/2022 9:29 PM Age: 71 years old Clinical indication: Cough and shortness of breath TECHNIQUE: Imaging protocol: Radiologic exam of the chest. Views: 1 view. COMPARISON: CR XR chest 1V portable [id number] 08/28/2022 9:41 AM FINDINGS: Lungs: Unremarkable. No consolidation. Pleural spaces: Unremarkable. No pleural effusion. No pneumothorax. Heart/Mediastinum: Unremarkable. No cardiomegaly. Bones/joints: Unremarkable. XR/XR chest 1V portable [id number] IMPRESSION: No acute findings.
[2022-09-21 21:09] VITALS: BP 138/60; PULSE 77; RESP 22; O2SAT 98
--- NOTE | 2022-09-21 21:10 | W.ED.GENADLT ---
HPI - General Adult General: Chief complaint: General Medical Stated complaint: rib pain, coughing Time Seen by Provider: 09/21/22 21:02 Source: patient and EMS Mode of arrival: EMS History of Present Illness: 71-year-old female who comes in complaining of pain in her right lower lateral chest wall area. The pain is sharp and stabbing, worse with deep breaths. The pain came on today with coughing. She states she was just discharged from the hospital after having rhinovirus and an exacerbation of her COPD. She states she has continued to cough since being discharged. She states she is also continued to have shortness of breath, feeling dizzy and lightheaded at times and having chills and sweats. No documented fevers. Review of Systems Narrative: See HPI PFSH ED PFSH: Medical History COPD (chronic obstructive pulmonary disease) COPD exacerbation Diabetes mellitus type 2 in nonobese Hypertension Tobacco dependency Surgical History History of elbow surgery History of hand surgery History of hysterectomy Family History Other Cancer Social History Smoking and tobacco status: former smoker Quit status (tobacco): has quit using tobacco Year quit tobacco: November 2020 Former quit date comment: 1 ppd X 58 years, started at age 13 Alcohol intake: never Physical Exam Const: OTHER: Well-developed well-nourished white female who appears uncomfortable due to pain. She appears mildly short of breath. She is chronically on oxygen, nasal cannula therapy which she is on at this time. She is tachypneic. Able to speak in full sentences. HENMT: OTHER: Mucous membranes are moist. Oropharynx is clear. Neck/C-Spine: OTHER: No JVD or lymphadenopathy. Chest: OTHER: Tenderness in the right posterior lateral chest wall area. No step-offs or crepitance palpable. Resp: OTHER: Patient is tachypneic. Decreased breath sounds diffusely. There are bilateral equal breath sounds. She has expiratory wheezes in the upper lung ramachandran bilaterally. Cardio: OTHER: Heart regular rate and rhythm. GI: OTHER: Abdomen is soft and nontender. Extremity: OTHER: No extremity swelling or tenderness. Negative Homans. Course Vital Signs: Vital signs: Vital Signs Temperature 98.9 F 09/21/22 21:01 Pulse Rate 73 09/21/22 21:38 Respiratory Rate 22 H 09/21/22 21:44 Blood Pressure 138/60 09/21/22 21:09 Pulse Oximetry 92 09/21/22 21:38 Oxygen Delivery Me thod 09/21/22 21:38 Oxygen Flow Rate 4 09/21/22 21:33 MDM - General Adult Medical Decision Making 71-year-old female who presents with pleuritic pain in the right lower chest area. Onset after coughing. Recent admission to the hospital for rhinovirus. Differential includes pleurisy, rib fracture, pulmonary emboli, pneumonia. We will start an IV, give her IV morphine for pain Zofran for nausea. We will obtain a chest x-ray, laboratory studies and plan for CT arteriogram of the chest to rule out pulmonary embolism. With her recently being on steroids and a recent infection, I anticipate that a D-dimer would be elevated and do not feel that it would be helpful. We will proceed directly to CT. Chest x-ray per my interpretation, she has flattening of her diaphragms bilaterally, no effusion so increased interstitial markings in the lung bases bilaterally. No pneumothorax noted. CT is negative for pulmonary embolism. Does show right-sided bronchitis. With the patient's cough, I am going to treat her with doxycycline twice daily x7 days. She has been given a dose in the emergency department. I have also given her Tessalon to take 3 times daily as needed for cough and Linden 7.5 to take 1 every 4-6 hours as needed for pain. I recommended that she continue her regular breathing medications. She has been instructed to return if her symptoms worsen. Follow-up this next week with her primary care doctor. Medical Records I reviewed the patient's medical records. Lab Data I reviewed the patient's lab results. Patient's white blood cell count is elevated at 15.3. This may be due to the recent steroid use. Electrolytes are normal. BUN 8, creatinine 0.5. LFTs are normal. 09/21/22 21:10 09/21/22 21:10 Radiology Impressions Chest CTA 09/21/22 21:08 IMPRESSION: 1. No evidence of pulmonary embolism. 2. Mild right-sided bronchitis or bronchiolitis 3. Findings suggesting tracheobronchomalacia. COMMENTS: In the absence of a history or active diagnosis of lung cancer, it is recommended that this patient with emphysema be evaluated for enrollment in a low dose CT lung cancer screening program. Chest X-Ray 09/21/22 21:08 IMPRESSION: No acute findings. Laboratory Results WBC 15.3 10^3/uL (4.0-10.0) H 09/21/22 21:10 RBC 4.27 10^6/uL (4.1-5.3) 09/21/22 21:10 Hgb 12.4 g/dL (11.5-15.3) 09/21/22 21:10 Hct 39.7 % (37.0-47.0) 09/21/22 21:10 MCV 93.0 fl (81-99) 09/21/22 21:10 MCH 29.0 pg (28.0-34.0) 09/21/22 21:10 MCHC 31.2 g/dL (30.0-36.0) 09/21/22 21:10 RDW 11.7 % (12.1-15.1) L 09/21/22 21:10 Plt Count 296 10^3/cmm (130-400) 09/21/22 21:10 MPV 10.3 fL (7.4-10.4) 09/21/22 21:10 Neut % (Auto) 75.4 % 09/21/22 21:10 Lymph % (Auto) 14.8 % 09/21/22 21:10 [place] % (Auto) 7.2 % 09/21/22 21:10 Eos % (Auto) 1.8 % 09/21/22 21:10 Baso % (Auto) 0.3 % 09/21/22 21:10 Neut # (Auto) 11.58 10^3/uL (1.8-7.7) H 09/21/22 21:10 Lymph # (Auto) 2.3 10^3/uL (0.8-4.8) 09/21/22 21:10 [place] # (Auto) 1.1 10^3/uL (0.2-0.9) H 09/21/22 21:10 Eos # (Auto) 0.3 10^3/uL (0.0-0.8) 09/21/22 21:10 Baso # (Auto) 0.0 10^3/uL (0.0-0.1) 09/21/22 21:10 Nucleated RBC % (auto) 0 % 09/21/22 21:10 Nucleated RBCs # 0.0 /100WBC 09/21/22 21:10 Sodium 139 mmol/L (136-145) 09/21/22 21:10 Potassium 3.9 mmol/L (3.5-5.1) 09/21/22 21:10 Chloride 95 mmol/L (98-107) L 09/21/22 21:10 Carbon Dioxide 34 mmol/L (22-29) H 09/21/22 21:10 Anion Gap 13.9 (5-19) 09/21/22 21:10 BUN 8 mg/dL (8-23) 09/21/22 21:10 Creatinine 0.5 mg/dL (0.5-0.9) 09/21/22 21:10 GFR Calculation Not Reportable 09/21/22 21:10 Glucose 220 mg/dL (65-115) H 09/21/22 21:10 Calculated Osmolality 293 mOsm/kg (285-295) 09/21/22 21:10 Calcium 9.1 mg/dL (8.5-10.5) 09/21/22 21:10 Total Bilirubin 0.2 mg/dL (0.15-1.2) 09/21/22 21:10 AST 18 U/L (0-32) 09/21/22 21:10 ALT 20 U/L (0-33) 09/21/22 21:10 Alkaline Phosphatase 96 U/L (35-105) 09/21/22 21:10 Total Protein 7.0 g/dL (6.6-8.7) 09/21/22 21:10 Albumin 3.7 g/dL (3.5-5.2) 09/21/22 21:10 Globulin 3.3 g/dL (1.3-4.6) 09/21/22 21:10 Discharge Plan Discharge Patient Disposition: Home Clinical Impression: Bronchitis, Acute chest wall pain Condition: Stable Prescriptions: New doxycycline hyclate 100 mg tablet 100 mg PO BID 7 Days Qty: 14 0RF benzonatate 200 mg capsule 200 mg PO TID PRN (Reason: cough) Qty: 30 0RF hydrocodone-acetaminophen 7.5-325 mg tablet 1 tab PO Q4H PRN (Reason: pain) Qty: 14 0RF No Action famotidine 20 mg tablet 20 mg PO DAILY bupropion HCl 150 mg tablet sustained-release 12 hr 150 mg PO DAILY formoterol fumarate [Perforomist] 20 mcg/2 mL solution for nebulization 2 ml inhalation BID Qty: 120 6RF Yupelri 175 mcg/3 mL solution for nebulization 175 mcg inhalation DAILY Qty: 90 6RF budesonide 0.5 mg/2 mL suspension for nebulization 0.5 mg inhalation BID Qty: 60 6RF albuterol sulfate 2.5 mg /3 mL (0.083 %) Solution For Nebulization 2.5 mg INHALATION Q4H PRN (Reason: Shortness Of Breath) cetirizine 10 mg Tablet 10 mg PO DAILY PRN (Reason: Allergy Symptoms) metoprolol succinate 100 mg Tablet Extended Release 24 Hr 100 mg PO DAILY amlodipine 5 mg Tablet 5 mg PO QAM aspirin 81 mg Tablet,Delayed Release (Dr/Ec) 81 mg PO QAM albuterol sulfate [ProAir HFA] 90 mcg/actuation Hfa Aerosol Inhaler 2 puff INHALATION Q4H PRN (Reason: Shortness Of Breath) metformin 500 mg Tablet 500 mg PO BID dextromethorphan-guaifenesin 10-100 mg/5 mL Liquid 10 ml PO Q4H PRN (Reason: Cough) ipratropium-albuterol 0.5 mg-3 mg(2.5 mg base)/3 mL solution for nebulization 3 ml inhalation Q4H PRN (Reason: shortness of breath or wheezing) Qty: 180 0RF alprazolam 0.25 mg Tablet 0.25 - 0.5 mg PO BEDTIME PRN (Reason: Anxiety) polyethylene glycol 3350 17 gram powder in packet 17 g PO BID PRN (Reason: Constipation) Discharge Orders: Discharge ED (Routine); Ordered 09/21/22 Ordered By: Nena Dong Referrals: Donald Joiner [Primary Care Provider] - Discharge Diet: Advance as tolerated Discharge Activity: Resume usual activity Patient Instructions: Acute Bronchitis (ED), Chest Wall Pain (ED), Opioid Safety, Pain Management Activity Restrictions/Additional Instructions: Take the antibiotics twice daily until gone. You can take the Tessalon 3 times daily as needed for cough. Take the Linden every 4-6 hours as needed for pain and for cough. Use your breathing medications as needed. Return if your symptoms are worsening. Follow-up this next week with your primary care doctor Coding Level of Care Code ED Wan Support Specialist for Danny Casillas
[2022-09-21 21:16] LABS: Basophils % 0.3 %; Eosinophils # 0.3 10^3/uL (0.0-0.8); Eosinophils % 1.8 %; Hematocrit 39.7 % (37.0-47.0); Hemoglobin 12.4 g/dL (11.5-15.3); Lymphocytes # 2.3 10^3/uL (0.8-4.8); Lymphocytes % 14.8 %; Mean Corpuscular HGB Conc 31.2 g/dL (30.0-36.0); Mean Platelet Volume 10.3 fL (7.4-10.4); Monocytes # 1.1 10^3/uL (0.2-0.9); Monocytes % 7.2 %; Neutrophils # 11.58 10^3/uL (1.8-7.7); Neutrophils % 75.4 %; Nucleated Red Blood Cells % 0 %; Platelet Count 296 10^3/cmm (130-400); Red Blood Count 4.27 10^6/uL (4.1-5.3); Red Cell Distribution Width 11.7 % (12.1-15.1); White Blood Count 15.3 10^3/uL (4.0-10.0)
[2022-09-21 21:33] VITALS: PULSE 74; RESP 16; O2SAT 98
[2022-09-21] MEDS: ipratropium-albuterol 3 mL Neb INHALATION (21:33)
[2022-09-21 21:38] VITALS: PULSE 73; RESP 16; O2SAT 92
[2022-09-21] MEDS: LORazepam 2 mg/mL INJ 1 mL 1 MG IVP (21:40)
[2022-09-21] MEDS: ondansetron 2 mg/ML SDV 2 mL 4 MG IVP (21:41)
[2022-09-21] MEDS: benzonatate 100 mg Capsule 200 MG PO (21:43)
[2022-09-21 21:44] VITALS: RESP 22
[2022-09-21] MEDS: morphine 4 mg/mL SDV 1 mL IVP (21:44)
[2022-09-21 21:45] LABS: Alanine Aminotransferase 20 U/L (0-33); Albumin Level 3.7 g/dL (3.5-5.2); Alkaline Phosphatase 96 U/L (35-105); Aspartate Amino Transferase 18 U/L (0-32); Blood Urea Nitrogen 8 mg/dL (8-23); Calcium 9.1 mg/dL (8.5-10.5); Carbon Dioxide 34 mmol/L (22-29); Chloride 95 mmol/L (98-107); Globulin 3.3 g/dL (1.3-4.6); Glucose 220 mg/dL (65-115); Osmolality Calculated 293 mOsm/kg (285-295); Sodium 139 mmol/L (136-145); Total Bilirubin 0.2 mg/dL (0.15-1.2)
[2022-09-21 21:57] LABS: Anion Gap 13.9 (5-19); Potassium 3.9 mmol/L (3.5-5.1)
[2022-09-21] MEDS: iohexol 350 mg/mL 500 mL Btl (per mL) IV (21:59)
[2022-09-21] MEDS: doxycycline 100 mg Tablet PO (22:51)
[2022-09-21 22:54] VITALS: BP 136/81; PULSE 81; RESP 18; O2SAT 98
== END 2022-09-21 23:00 | disposition home or self-care (01) ==
PROVIDERS: Emergency Provider Emergency Medicine; PCP Family Medicine
DX: R07.89 Other chest pain (principal); J40 Bronchitis, not specified as acute or chronic
CPT/HCPCS: 71045; 71275; 80053; 85025; 94640; 96374; 96375; 99285; J2060; J2270; J2405; Q9967

== ENCOUNTER → 2022-12-31 13:21 | Outpatient (BNVA) | payer MEDICARE, OTHER, SELFPAY | PROVIDERS: PCP Family Medicine; Visit Provider Internal Medicine Pulmonary Disease | DX: J44.9 Chronic obstructive pulmonary disease, unspecified (principal); J96.11 Chronic respiratory failure with hypoxia; J96.12 Chronic respiratory failure with hypercapnia; Z87.891 Personal history of nicotine dependence; Z99.81 Dependence on supplemental oxygen | CPT/HCPCS: 99214 ==

== ENCOUNTER → 2023-09-02 13:35 | Outpatient (BNVA) | payer MEDICARE, OTHER, SELFPAY | PROVIDERS: PCP Family Medicine; Visit Provider Internal Medicine Pulmonary Disease | DX: J43.2 Centrilobular emphysema (principal); J96.11 Chronic respiratory failure with hypoxia; J96.12 Chronic respiratory failure with hypercapnia; Z87.891 Personal history of nicotine dependence | CPT/HCPCS: 99214 ==

== ENCOUNTER → 2024-08-16 13:45 | Outpatient (BNVA) | payer OTHER, MEDICARE, SELFPAY | PROVIDERS: PCP Family Medicine; Referring Provider Internal Medicine Interventional Cardiology; Visit Provider Internal Medicine | DX: R07.9 Chest pain, unspecified (principal) | CPT/HCPCS: 93005; 99204 ==

== ENCOUNTER 2024-09-30 11:54 | Outpatient (CLI) | payer OTHER, MEDICARE, SELFPAY ==
--- NOTE | 2024-09-30 12:08 | USCV_ITS ---
Shirley Avila Age: 73 Gender: F : 1950 Exam Date: 09/30/2024 12:36 Ordering Phys: Matt Lind M.D ([email or web address]) Technologist: Exam Location: [facility] [place] Indication: cp cad BP: 147 / 68 HR: 81 Rhythm: Sinus Technical Quality: Adequate MEASUREMENTS (Male / Female) Normal Values 2D ECHO LV Diastolic Diameter PLAX 3.7 cm 4.2 - 5.9 / 3.9 - 5.3 cm IVS Diastolic Thickness 1.3 cm 0.6 - 1.0 / 0.6 - 0.9 cm IVS Systolic Thickness 1.5 cm LVPW Diastolic Thickness 1.2 cm 0.6 - 1.0 / 0.6 - 0.9 cm LVPW Systolic Thickness 1.3 cm LVOT Diameter 2.0 cm LV Ejection Fraction 2D Teich 54.1 % LV Ejection Fraction MOD 4C 61.2 % LV Ejection Fraction MOD 2C 73.1 % LV Ejection Fraction 2C AL 73.5 % LA Diameter 2.4 cm RA Systolic Volume 4C AL 31.5 ml RA Systolic Volume 4C MOD 30.6 ml LA Sys Volume AL 30.9 cm cubed LA Sys Volume Index AL 18.0 cm cubed/m squared Aorta at Sinotubular Diameter 2.7 cm IVC Diameter 1.5 cm M-MODE LA Ao Ratio MM 1.5 AV Cusp Separation MM 2.0 cm DOPPLER AV Peak Velocity 156.0 cm/s LVOT Peak Velocity 89.0 cm/s AV Area Cont Eq vti 2.0 cm squared AV Area Cont Eq pk 1.7 cm squared MV Peak Velocity 120.0 cm/s MV Area PHT 4.0 cm squared Mitral E to A Ratio 1.1 TV Peak Velocity 139.5 cm/s TR Peak Velocity 186.0 cm/s TR Peak Gradient 13.8 mmHg TV Peak E Velocity 84.0 cm/s PV Peak Velocity 127.0 cm/s FINDINGS Left Ventricle Left ventricle is normal in size. LV systolic function is normal with EF of 60 to 65%. No regional wall motion abnormalities are seen. Right Ventricle Normal in size and function Right Atrium Normal in size Left Atrium Normal in size Mitral Valve Mild mitral annular calcification. Mild mitral regurgitation. Aortic Valve Structurally normal aortic valve. No significant stenosis or regurgitation. Tricuspid Valve Insufficient TR jet to calculate RVSP Pulmonic Valve Not well visualized Pericardium Normal Aorta Normal size IVC Appears to be normal CONCLUSIONS LV systolic function is normal with EF of 60-65%. Mild mitral regurgitation Matt Lind MD (Electronically Signed) Final Date: 13 October 2024 11:31 S
== END 2024-09-30 11:55 | disposition home or self-care (01) ==
LOC: RAD 12:00
PROVIDERS: PCP Family Medicine; Visit Provider Internal Medicine
DX: R07.9 Chest pain, unspecified (principal); R06.02 Shortness of breath; I34.81 Nonrheumatic mitral (valve) annulus calcification; I34.0 Nonrheumatic mitral (valve) insufficiency
CPT/HCPCS: 93306

== ENCOUNTER 2024-11-04 08:49 | Outpatient (CLI) | payer MEDICARE, OTHER, SELFPAY ==
--- NOTE | 2024-11-04 08:53 | US_ITS ---
WS: [id number] Left breast ultrasound, 11/04/2024 Clinical Data: ABNORMAL MAMMOGRAM OF LEFT BREAST Comparison: Left breast ultrasound, 12/31/2019 Findings: The left breast demonstrated a simple cyst at the 8 o'clock position 2 cm from the nipple. It measures 0.3 x 0.4 x 0.6 cm. No other cysts were seen. There were no masses. US/US breast LT limited* [id number] Impression: 1. Simple cyst of the medial aspect of the left breast. 2. Recommend return to annual screening mammograms. BIRADS: 2 - Benign. FOLLOW UP: See Report
--- NOTE | 2024-11-04 08:53 | MM_ITS ---
WS: [id number] Left breast diagnostic 3D tomosynthesis digital mammogram, 11/04/2024 Clinical Data: ABNORMAL MAMMOGRAM/MASS Comparison: Mammogram, 10/19/2024 Findings: The CC view from 10/19/2024 demonstrated a 0.6 cm well bordered nodule in the medial aspect of the left breast. The nodule was not well visualized on the MLO view. Today's examination showed the nodule in the medial aspect of the left breast on the cc view. Again the medial lateral view did not demonstrate the nodule well. The nodule may be in the 8 to 9 o'clock position in the left breast. The left breast shows fibroglandular tissue. MM/MM diag LT tomosynthesis [id number] Impression: 1. Small nodule in medial aspect of the left breast which has the appearance of a cyst. 2. Left breast ultrasound. DENSITY: There are scattered areas of fibroglandular density. BIRADS: 2 - Benign. 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
== END 2024-11-04 08:50 | disposition home or self-care (01) ==
PROVIDERS: PCP Family Medicine; Visit Provider Nurse Practitioner Family
DX: R92.8 Other abnormal and inconclusive findings on diagnostic imaging of breast (principal); R92.322 Mammographic fibroglandular density, left breast; N60.02 Solitary cyst of left breast
CPT/HCPCS: 76642; 77061; G0279

== ENCOUNTER → 2025-02-14 14:44 | Outpatient (BNVA) | payer MEDICARE, OTHER, SELFPAY | PROVIDERS: PCP Family Medicine; Visit Provider Internal Medicine | DX: I25.10 Atherosclerotic heart disease of native coronary artery without angina pectoris (principal); I10 Essential (primary) hypertension; E11.9 Type 2 diabetes mellitus without complications; Z79.84 Long term (current) use of oral hypoglycemic drugs; Z79.85 Long-term (current) use of injectable non-insulin antidiabetic drugs; Z95.5 Presence of coronary angioplasty implant and graft; Z79.82 Long term (current) use of aspirin; Z87.891 Personal history of nicotine dependence | CPT/HCPCS: 99213 ==

== ENCOUNTER 2025-03-28 06:52 | Outpatient (CLI) | payer MEDICARE, OTHER, SELFPAY ==
--- NOTE | 2025-03-28 07:10 | CT_ITS ---
WS: [id number] LDCT LUNG CANCER SCREENING HISTORY: HX OF TOBACCO USE TECHNIQUE: Axial imaging performed from the apices to 1 cm below the costophrenic angles. Coronal and sagittal reformats are submitted with axial MIP series. All CT scans at [facility] use at least one of these dose optimization techniques: automated exposure control; mA and/or kV adjustment per patient size (includes targeted exams where dose is matched to clinical indication); or iterative reconstruction. DLP: 52.40 mGy.cm DIvol: Mean CTDIvol: 1.00 (mGy) COMPARISON: None available. Diagnostic quality: Satisfactory Lungs: Lungs are hyperinflated with centrilobular emphysema. There are a few peripheral micronodules. No additional mass or micronodules. No endobronchial lesions. Curvilinear atelectasis RIGHT lung base. No endobronchial lesions. Previously described flattening and inward bulging of the trachea is no longer present. This was probably due to poor inspiration on the prior study. No pneumonia. Heart: Normal size heart with no pericardial effusion.. Other findings: Mild scattered atherosclerotic plaque within the aorta. No mediastinal or hilar adenopathy. Normal pulmonary artery size. Small hiatal hernia. Cholelithiasis without acute cholecystitis. No adrenal mass. No destructive bone lesions. CT/CT lung screening [id number] IMPRESSION: LUNG-RADS: 2-Benign Appearance or Behavior FOLLOW UP: 12 Month: Continue annual screening with LDCT OTHER FINDINGS (S MODIFIER): None.
== END 2025-03-28 06:53 | disposition home or self-care (01) ==
LOC: RAD 06:53
PROVIDERS: PCP Family Medicine; Visit Provider Nurse Practitioner Family
DX: Z87.891 Personal history of nicotine dependence (principal); I70.0 Atherosclerosis of aorta; K44.9 Diaphragmatic hernia without obstruction or gangrene; K80.20 Calculus of gallbladder without cholecystitis without obstruction; J43.2 Centrilobular emphysema; R91.8 Other nonspecific abnormal finding of lung field
CPT/HCPCS: 71271